=== PATIENT | female | born 1945 | race Caucasian/White ===

== ENCOUNTER 2019-02-18 21:22 | Emergency (ER) | payer BC, MEDICARE, OTHER ==
[~2019-02-18] VITALS: Ht 170.2 cm; Wt 64.9 kg
--- OUTSIDE RECORDS SUMMARY | 2019-02-18 21:26 | XMS REPORT | Summary of Care ---
Author Author [facility] Organization [facility] Address Unknown Phone Unavailable Encounter MYNOR Barrow(GINO) [id number] Date(s): 07/20/17 - 07/21/17 [facility] [address] [place] [address]- [phone] Discharge Disposition: LBTC Left B4 Treatment Cmplt-MSE Cmplt Attending Physician: Richie Keys MD Vital Signs Most recent to 1 oldest [Reference Range]: Height 170.18 cm (07/20/17 9:12 PM) Temperature Oral 97.9 DegF [96.4-99.1 DegF] (07/20/17 9:12 PM) Blood Pressure 160/85 mmHg [90-140/60-90 mmHg] *HI* (07/20/17 9:12 PM) Respiratory Rate 24 BRMIN [14-20 BRMIN] *HI* (07/20/17 9:12 PM) Peripheral Pulse 100 bpm Rate [60-100 bpm] (07/20/17 9:12 PM) Weight 68.182 kg (07/20/17 9:12 PM) Body Mass Index 23.54 m2 (07/20/17 9:12 PM) Problem List Condition Effective Dates Status Health Status Informant Abdominal aortic Active aneurysm(Confirmed) Anxious Active depression(Confirmed ) Hyperlipidemia(Confi 02/22/14 Active rmed)1, 2 Impaired fasting 02/22/14 Active glycaemia3, 4 Insomnia(Confirmed)5 02/22/14 Active , 6 Colon Resolved cancer(Confirmed) Malignant tumor of 02/22/14 Active colon(Confirmed)7, 8 Smoker(Confirmed) Active 1Data migrated from [employer] on 12/20/14. 2Data migrated from [employer] on 12/20/14. 3Data migrated from [employer] on 12/20/14. 4Data migrated from [employer] on 12/20/14. 5Data migrated from [employer] on 12/20/14. 6Data migrated from [employer] on 12/20/14. 7Data migrated from [employer] on 12/20/14. 8Data migrated from [employer] on 12/20/14. Allergies, Adverse Reactions, Alerts Substance Reaction Severity Status NKDA Active Medications Saline Flush 0.9% 10 mL, Route: IVP, Drug Form: INJ, Dosing Weight 68.182, kg, PRN, PRN Line Flush , Start date: 07/20/17 21:18:00 CHEMICAL PROCESS ENGINEER, Duration: 30 day, Stop date: 08/19/17 21:17 :00 CHEMICAL PROCESS ENGINEER Notes: (Same as: BD Posiflush) Start Date: 07/20/17 Stop Date: 07/21/17 Status: Discontinued Results No data available for this section Immunizations Given and Recorded Vaccine Date Status Refusal Reason pneumococcal 13-valent vaccine 05/24/15 Given Procedures Procedure Date Related Diagnosis Body Site Biopsy of the temporal artery 06/20/17 Colon operation1 07/22/08 Bladder operation Colonoscopy Hysterectomy Oophorectomy ORIF - Open reduction and internal fixation of fracture Wrist repair 1colon resection Social History Social History Type Response Substance Abuse Use: None. Employment/School Status: Retired. Alcohol Past Smoking Status Current every day smoker; Type: Cigarettes; Exposure to Tobacco Smoke self; Cigarette Smoking Last 365 Days Yes; Reg Smoking Cessation Counseling Yes; Tobacco use per day: 10; Assessment and Plan No data available for this section
--- OUTSIDE RECORDS SUMMARY | 2019-02-18 21:26 | XMS REPORT | Summary of Care ---
Author Author [facility] Organization [facility] Address Unknown Phone Unavailable Care Team Providers Care Instrument Checker Name Role Phone Higinio Vela PCP Encounter [facility] Danial(FIN) [id number] Date(s): 12/24/18 - 12/24/18 [facility] [address] [place] [address]- [phone] Discharge Disposition: Home or Self Care Attending Physician: Higinio Vela MD Referring Physician: Higinio Vela MD Vital Signs Most recent to 1 oldest [Reference Range]: Height 170.18 cm (12/24/18 2:43 PM) Blood Pressure 126/83 mmHg [90-140/60-90 mmHg] (12/24/18 2:43 PM) Peripheral Pulse 73 bpm Rate [60-100 bpm] (12/24/18 2:43 PM) Weight 66.932 kg (12/24/18 2:43 PM) Body Mass Index 23.11 m2 (12/24/18 2:43 PM) Problem List Condition Effective Dates Status [...] [employer] on 12/20/14. Allergies, Adverse Reactions, Alerts No Known Medication Allergies Medications Paxil 30 mg oral tablet 30 mg=1 tab, PO, Daily, # 30 tab, 0 Refill(s), Pharmacy: [id number] Start Date: 12/24/18 Status: Ordered Results No data available for this section Immunizations Given and Recorded Vaccine Date Status Refusal Reason pneumococcal 13-valent vaccine 05/24/15 Given Procedures Procedure Date Related Diagnosis Body Site Status Biopsy of the temporal artery 06/20/17 Completed Colon operation1 07/22/08 Completed Bladder operation Completed Colonoscopy Completed Hysterectomy Completed Oophorectomy Completed ORIF - Open reduction and internal fixation Completed of fracture Wrist repair Completed 1colon resection Social History Social History Type Response Substance Abuse Use: None. Employment/School Status: Retired. Alcohol Past Smoking Status Current every day smoker; Type: Cigarettes; Exposure to Tobacco Smoke self; Cigarette Smoking Last 365 Days Yes; Reg Smoking Cessation Counseling Yes; Tobacco use per day: 10; entered on: 12/24/18 Assessment and Plan No data available for this section
--- OUTSIDE RECORDS SUMMARY | 2019-02-18 21:26 | XMS REPORT | Summary of Care ---
Author Author [facility] Organization [facility] Address Unknown Phone Unavailable Care Team Providers Care Keying Machine Operator Name Role Phone JoseHiginio melendez Carmelita PCP Encounter [facility] Niesha_xavier(FIN) [id number] Date(s): 06/29/18 - 06/30/18 [facility] [address] [place] [address]- [phone] Vital Signs No data available for this section Problem List Condition Effective Dates Status Health [...] Reactions, Alerts No Known Medication Allergies Medications loratadine 10 mg oral tablet 10 mg=1 tab, PO, Daily, # 90 tab, 3 Refill(s), Pharmacy: [id number] Start Date: 07/01/18 Stop Date: 11/25/18 Status: Discontinued Results No data available for [...]
--- OUTSIDE RECORDS SUMMARY | 2019-02-18 21:26 | XMS REPORT | Continuity of Care Document ---
Author Author [employer] Organization [employer] Address Unknown Phone Unavailable Care Team Providers Care Stull Installer Name Role Phone [employer] Unavailable Unavailable Problems Problem Status Onset Date Classification Date Reported Comments Source SOB Active 07/20/2017 [facility] UNK Active 06/18/2017 [facility] Z00.00 - ENCNTR FOR GENERAL ADULT MEDIC Active 06/26/2015 [facility] [place] ADJUSTMENT DISORDER WITH DEPRESSED MOOD Active 03/25/2014 Condition 11/23/2014 [facility] 786.2 - COUGH 305.1 - TOBACCO USE DIS Active 02/22/2014 [facility] [place] Hyperlipidemia1, 2 Active 02/22/2014 Problem 02/17/2019 Data migrated from [employer] on 12/20/14. Data migrated from [employer] on 12/20/14. [facility], [facility] [place],[facility] Impaired fasting glycaemia3, 4 Active 02/22/2014 Problem 02/17/2019 Data migrated from [employer] on 12/20/14. Data migrated from [employer] on 12/20/14. [facility] Insomnia5, 6 Active 02/22/2014 Problem 02/17/2019 Data migrated from [employer] on 12/20/14. Data migrated from [employer] on 12/20/14. [facility], [facility] [place],[facility] Malignant tumor of colon7, 8 Active 02/22/2014 Problem 02/17/2019 Data migrated from [employer] on 12/20/14. Data migrated from [employer] on 12/20/14. [facility], [facility] [place],[facility] ABDOMINAL AORTIC ANEURYSM Active 02/22/2014 Condition 11/23/2014 [facility] COLON CANCER Active 02/22/2014 Condition 11/23/2014 [facility] INSOMNIA, CHRONIC Active 02/22/2014 Condition 11/23/2014 [facility] HYPERLIPIDEMIA Active 02/22/2014 Condition 11/23/2014 [facility] IMPAIRED FASTING GLUCOSE Active 02/22/2014 Condition 11/23/2014 [facility] ELEVATED BLOOD PRESSURE WITHOUT DIAGNOSIS OF HYPERTENSION Inactive 02/22/2014 Condition 11/23/2014 [facility] B12 DEFICIENCY Active 02/22/2014 Condition 11/23/2014 [facility] COUGH Inactive 02/22/2014 Condition 11/23/2014 [facility] SMOKER Inactive 02/22/2014 Condition 11/23/2014 [facility] FATIGUE Inactive 02/22/2014 Condition 11/23/2014 [facility] Abdominal aortic aneurysm Active Problem 02/17/2019 [facility] 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 [facility], [facility] [place],[facility] Colon cancer Resolved Problem 02/17/2019 [facility] Smoker Active Problem 02/17/2019 [facility] Medications Medication Details Route Status Patient Instructions Ordering Provider Order Date Source Paroxetine 40 MG Oral Tablet [Paxil] 40 mg=1 tab, PO, Daily, # 30 tab, 0 Refill(s), Pharmacy: [facility] [id number] Active 01/19/2019 [facility] Paroxetine 30 MG Oral Tablet [Paxil] 30 mg=1 tab, PO, Daily, # 30 tab, 0 Refill(s), Pharmacy: [facility] [id number] Active 12/24/2018 [facility] lisinopril 20 mg oral tablet See Instructions, TAKE 1 TABLET BY MOUTH DAILY, # 90 tab, 1 Refill(s), Pharmacy: [facility] [id number] Active 11/25/2018 [facility] atorvastatin 20 mg oral tablet =1 tab, PO, Bedtime, # 90 tab, 1 Refill(s), [id number] Active 11/25/2018 [facility] Paroxetine 20 MG Oral Tablet [Paxil] 20 mg=1 tab, PO, Daily, # 30 tab, 0 Refill(s), Pharmacy: [facility] [id number] Active 11/25/2018 [facility] Vitamin D3 50,000 intl units oral capsule 50,000 IntlUnit=1 cap, PO, qWeek, # 12 cap, 0 Refill(s) Active 11/25/2018 [facility] Actemra 20 mg/mL intravenous solution IV, q4wk, 0 Refill(s) Active 11/25/2018 [facility] Loratadine 10 MG Oral Tablet 10 mg=1 tab, PO, Daily, # 90 tab, 3 Refill(s), [facility] [place] [id number] No Longer Active 07/01/2018 [facility] lisinopril 20 mg oral tablet See Instructions, # 90 tab, Refill(s) 1, TAKE 1 TABLET BY MOUTH DAILY, Pharmacy: [facility] [id number] Active 06/01/2018 [facility] Zolpidem tartrate 5 MG Oral Tablet [Ambien] 5 mg=1 tab, PO, Bedtime, PRN for sleep, # 30 tab, 1 Refill(s) No Longer Active 05/07/2018 [facility] lisinopril 20 mg oral tablet 20 mg=1 tab, PO, Daily, # 90 tab, 0 Refill(s), [email or web address] [id number] No Longer Active 02/23/2018 [facility] Zolpidem tartrate 5 MG Oral Tablet [Ambien] 5 mg=1 tab, PO, Bedtime, PRN for sleep, # 30 tab, 2 Refill(s) No Longer Active 02/05/2018 [facility] predniSONE 5 mg oral tablet 5 mg=1 tab, PO, Daily, Give with food., # 14 tab, 0 Refill(s) Active 02/05/2018 [facility] gabapentin 600 MG Oral Tablet 600 mg=1 tab, PO, BID, 0 Refill(s) Active 02/05/2018 [facility] lisinopril 20 mg oral tablet 20 mg=1 tab, PO, Daily, # 30 tab, 0 Refill(s), [email or web address] [id number] No Longer Active 12/17/2017 [facility] lisinopril 10 mg oral tablet 10 mg=1 tab, PO, Daily, # 90 tab, 1 Refill(s), Pharmacy: [facility] [id number] Active 11/25/2017 [facility] Zolpidem tartrate 5 MG Oral Tablet [Ambien] 5 mg=1 tab, PO, Bedtime, PRN for sleep, # 30 tab, 2 Refill(s) Active 11/06/2017 [facility] lisinopril 5 mg oral tablet 5 mg=1 tab, PO, Daily, # 30 tab, 0 Refill(s), other Active 11/06/2017 [facility] predniSONE 1 mg oral delayed release tablet 8 mg=8 tab, PO, Daily, 0 Refill(s) Active 11/06/2017 [facility] gabapentin 100 MG Oral Capsule 500 mg=5 cap, PO, TID, 0 Refill(s) Active 11/06/2017 [facility] Zolpidem tartrate 5 MG Oral Tablet [Ambien] 5 mg=1 tab, PO, Bedtime, PRN for sleep, # 30 tab, 2 Refill(s) No Longer Active 08/08/2017 [facility] atorvastatin 20 mg oral tablet 20 mg=1 tab, PO, Bedtime, # 90 tab, 1 Refill(s), Pharmacy: [facility] [id number] Active 07/25/2017 [facility] Saline Flush 0.9% 10 mL, Route: IVP, Drug Form: INJ, Dosing Weight 68.182, kg, PRN, PRN Line Flush, Start date: 07/20/17 21:18:00 LIGHTHOUSE KEEPER, Duration: 30 day, Stop date: 08/19/17 21:17:00 CSTNotes: (Same as: BD Posiflush) No Longer Active 07/21/2017 [facility] lisinopril 10 mg oral tablet 10 mg=1 tab, PO, Daily, # 30 tab, 0 Refill(s), Pharmacy: [facility] [id number] Active 07/10/2017 [facility] Zolpidem tartrate 5 MG Oral Tablet [Ambien] 5 mg=1 tab, PO, Bedtime, PRN for sleep, # 30 tab, 0 Refill(s) Active 07/10/2017 [facility] Oxycodone Hydrochloride 5 MG Oral Tablet 10 mg, Route: PO, Drug form: TAB, ONCE, Dosing Weight 68.722, kg, PRN Pain Score 7-10, Start date: 06/20/17 11:33:00 LIGHTHOUSE KEEPER Inactive 06/20/2017 [facility] Fentanyl 25 microgram, Route: IVP, Q5Min, Dosing Weight 68.722, kg, PRN Pain Score 4-6, Priority: Routine, Start date: 06/20/17 11:01:00 LIGHTHOUSE KEEPER, Duration: 4 doses or times, Stop date: Limited # of times Inactive 06/20/2017 [facility] Albuterol 0.83 MG/ML Inhalant Solution 2.49 mg, Route: NEB, Q20Min, Dosing Weight 68.722, kg, PRN Wheezing, Priority: STAT, Start date: 06/20/17 11:01:00 LIGHTHOUSE KEEPER, Duration: 30 day, Stop date: 07/20/17 11:00:00 LIGHTHOUSE KEEPER Inactive 06/20/2017 [facility] Flumazenil 0.2 mg, Route: IVP, PRN, Dosing Weight 68.722, kg, PRN Benzodiazepine Reversal, Initial dose, Start date: 06/20/17 11:01:00 LIGHTHOUSE KEEPER, Duration: 30 day, Stop date: 07/20/17 11:00:00 LIGHTHOUSE KEEPER Inactive 06/20/2017 [facility] Diphenhydramine 12.5 mg, Route: IVP, Drug form: INJ, Q6H, Dosing Weight 68.722, kg, PRN Itching, Start date: 06/20/17 11:01:00 LIGHTHOUSE KEEPER, Duration: 30 day, Stop date: 07/20/17 11:00:00 LIGHTHOUSE KEEPER Inactive 06/20/2017 [facility] Naloxone 0.4 mg, Route: IVP, Q2MIN, Dosing Weight 68.722, kg, PRN Narcotic Reversal, Start date: 06/20/17 11:01:00 LIGHTHOUSE KEEPER, Duration: 8 doses or times, Stop date: Limited # of times Inactive 06/20/2017 [facility] Hydromorphone 0.5 mg, Route: IVP, Q5Min, Dosing Weight 68.722, kg, PRN Pain Score 7-10, Start date: 06/20/17 11:01:00 LIGHTHOUSE KEEPER, Duration: 4 doses or times, Stop date: Limited # of times Inactive 06/20/2017 [facility] Ondansetron 4 mg, Route: IVP, ONCE, Dosing Weight 68.722, kg, PRN Nausea & Vomiting, Start date: 06/20/17 11:01:00 LIGHTHOUSE KEEPER Inactive 06/20/2017 [facility] Hydralazine 10 mg, Route: IVP, Q20Min, Dosing Weight 68.722, kg, PRN Elevated BP, Start date: 06/20/17 11:01:00 LIGHTHOUSE KEEPER, Duration: 2 doses or times, Stop date: Limited # of times Inactive 06/20/2017 [facility] Labetalol 10 mg, Route: IVP, Q5Min, Dosing Weight 68.722, kg, PRN Elevated BP, Start date: 06/20/17 11:01:00 LIGHTHOUSE KEEPER, Duration: 5 doses or times, Stop date: Limited # of times Inactive 06/20/2017 [facility] Acetaminophen 1,000 mg, Route: PO, Drug form: TAB, ONCE, Dosing Weight 68.722, kg, PRN Pain Score 1-3, Start date: 06/20/17 11:01:00 LIGHTHOUSE KEEPER Inactive 06/20/2017 [facility] Oxycodone 5 mg, Route: PO, Drug form: TAB, Q4H, Dosing Weight 68.722, kg, PRN Pain Score 4-6, Start date: 06/20/17 11:01:00 LIGHTHOUSE KEEPER, Duration: 30 day, Stop date: 07/20/17 11:00:00 LIGHTHOUSE KEEPER Inactive 06/20/2017 [facility] Ketorolac 30 mg, 1 mL, Route: IVP, Drug form: INJ, ONCE, Dosing Weight 68.722, kg, Start date: 06/20/17 11:01:00 LIGHTHOUSE KEEPER, Stop date: 06/20/17 11:01:00 CSTNotes: (Same as:Toradol) IV bolus must be given >15 seconds. Give IM administration slowly and deeply into the muscle. Not for use > 4 days MEDICATION WASTE Product Size: 30 mg Product Wasted: ___ mg Inactive 06/20/2017 [facility] ondansetron (ANES) Route: IV, Drug form: INJ, ONCE, Stop date: 06/20/17 10:03:00 LIGHTHOUSE KEEPER Inactive 06/20/2017 [facility] dexamethasone (ANES) Route: IV, Drug form: INJ, ONCE, Stop date: 06/20/17 10:03:00 LIGHTHOUSE KEEPER Inactive 06/20/2017 [facility] Acetaminophen 300 MG / Codeine Phosphate 30 MG Oral Tablet [Tylenol with Codeine #3] 1 tab, PO, Q4H, PRN for pain, # 20 tab, 0 Refill(s) Active 06/20/2017 [facility] propofol (ANES) Route: IV, Drug form: INJ, ONCE, Stop date: 06/20/17 9:58:00 LIGHTHOUSE KEEPER Inactive 06/20/2017 [facility] ceFAZolin (ANES) Route: IV, Drug form: INJ, ONCE, Stop date: 06/20/17 9:58:00 LIGHTHOUSE KEEPER Inactive 06/20/2017 [facility] lidocaine (ANES) Route: IV, Drug form: INJ, ONCE, Stop date: 06/20/17 9:58:00 LIGHTHOUSE KEEPER Inactive 06/20/2017 [facility] fentaNYL (ANES) Route: IV, Drug form: INJ, ONCE, Stop date: 06/20/17 9:53:00 LIGHTHOUSE KEEPER Inactive 06/20/2017 [facility] midazolam (ANES) Route: IV, Drug form: SOLN, ONCE, Stop date: 06/20/17 9:53:00 LIGHTHOUSE KEEPER Inactive 06/20/2017 [facility] Lactated Ringers Injection IV (ANES) 1000 mL Route: IV, Total Volume: 1,000, Start date: 06/20/17 9:08:00 LIGHTHOUSE KEEPER, Stop date: 06/20/17 10:08:00 LIGHTHOUSE KEEPER Inactive 06/20/2017 [facility] Calcium Chloride 0.0014 MEQ/ML / Potassium Chloride 0.004 MEQ/ML / Sodium Chloride 0.103 MEQ/ML / Sodium Lactate 0.028 MEQ/ML Injectable Solution 1,000 mL, Rate: 25 ml/hr, Infuse over: 40 hr, Route: IV, Dosing Weight 68.722 kg, Total Volume: 1,000, Start date: 06/20/17 9:03:00 LIGHTHOUSE KEEPER, Duration: 30 day, Stop date: 07/20/17 9:02:00 LIGHTHOUSE KEEPER, 1.81, m2 Inactive 06/20/2017 [facility] Cefazolin 2 gm, Route: IVPB, ONCE, Dosing Weight 68.722, kg, Start date: 06/20/17 7:26:00 LIGHTHOUSE KEEPER, Stop date: 06/20/17 7:26:00 LIGHTHOUSE KEEPER, Surgical Prophylaxis Only; For patients Inactive 06/20/2017 [facility] Tylenol 500 mg, PO, TID, as needed for headache Active 06/20/2017 [facility] predniSONE 20 mg oral tablet 60 mg=3 tab, PO, Daily, X 30 day, # 90 tab, 0 Refill(s), Pharmacy: [facility] [id number] Active 06/18/2017 [facility] naproxen 500 mg oral tablet 500 mg=1 tab, PO, BID, PRN Pain, # 30 tab, 0 Refill(s), Pharmacy: [facility] [id number] Active 06/17/2017 [facility] TRAZODONE HCL 50 MG TABS 1 tablet at bedtime Active 05/31/2014 [facility] TRAZODONE HCL 50 MG TABS 1 tablet at bedtime Active 05/31/2014 [facility] LEXAPRO 20 MG TABS 1 tablet daily No Longer Active 04/25/2014 [facility] LEXAPRO 10 MG TABS 1 tablet daily Active 04/25/2014 [facility] MIRTAZAPINE 30 MG TBDP one po q hs No Longer Active 03/25/2014 [facility] FISH OIL BURP-LESS 1200 MG CAPS 1 tab by mouth twice a day Active 02/22/2014 [facility] CALCIUM CARBONATE 600 MG TABS 2 tabs twice a day Active 02/22/2014 [facility] VITAMIN D3 1000 UNIT CAPS 2 tabs twice a day Active 02/22/2014 [facility] CENTRUM SILVER ULTRA WOMENS TABS 1 tab by mouth once a day Active 02/22/2014 [facility] MAGNESIUM GLUCONATE 500 MG TABS 1 tab by mouth once a day No Longer Active 02/22/2014 [facility] ATORVASTATIN CALCIUM 20 MG TABS 1 tablet daily Active 02/22/2014 [facility] TRAZODONE HCL 50 MG TABS 1 tablet at bedtime Active 02/22/2014 [facility] VITAMIN D3 1000 UNIT CAPS 2 tabs twice a day Active 02/22/2014 [facility] TRAZODONE HCL 50 MG TABS 2 at bed time No Longer Active 02/22/2014 [facility] TRAZODONE HCL 50 MG TABS 2 at bed time No Longer Active 02/22/2014 [facility] ATORVASTATIN CALCIUM 20 MG TABS 1 tablet daily Active 02/22/2014 [facility] TRAZODONE HCL 50 MG TABS 2 at bed time No Longer Active 02/22/2014 [facility] Allergies, Adverse Reactions, Alerts Substance Category Reaction Severity Reaction type Status Date Reported Comments Source No Known Medication Allergies Assertion Drug allergy [facility] Immunizations Immunization Date Given Site Status Last Updated Comments Source pneumococcal 13-valent vaccine 05/24/2015 Left Deltoid completed [facility] Results Order Name Results Value Reference Range Date Interpretation Comments Source Chemistry HGBA1C 6.1 - 5.6 11/23/2014 [facility] Chemistry CHOLESTEROL 152 - 199 11/23/2014 [facility] Chemistry TRIGLYCERIDE 88 - 149 11/23/2014 [facility] Chemistry HDL 60 >=61 11/23/2014 [facility] Chemistry LDL 74 - 99 11/23/2014 [facility] Chemistry SODIUM 138 MEQ/L 135 - 145 11/23/2014 [facility] Chemistry POTASSIUM 3.9 MEQ/L 3.5 - 5.1 11/23/2014 [facility] Chemistry CREATININE 0.7 0.5 - 1.4 11/23/2014 [facility] Chemistry BUN 8 7 - 22 11/23/2014 [facility] Chemistry BUN/CREAT 11 6 - 25 11/23/2014 [facility] Chemistry ALBUMIN 4.1 3.5 - 5.0 11/23/2014 [facility] Chemistry CALCIUM 9.2 8.5 - 10.5 11/23/2014 [facility] Chemistry SGPT (ALT) 25 0 - 65 11/23/2014 [facility] Chemistry SGOT (AST) 16 0 - 37 11/23/2014 [facility] Chemistry ALK PHOS 56 39 - 136 11/23/2014 [facility] Chemistry HGBA1C 6.1 - 5.6 02/22/2014 [facility] Chemistry CHOLESTEROL 128 - 199 02/22/2014 [facility] Chemistry TRIGLYCERIDE 70 - 149 02/22/2014 [facility] Chemistry HDL 57 >=61 02/22/2014 [facility] Chemistry LDL 57 - 99 02/22/2014 [facility] Chemistry SODIUM 140 MEQ/L 135 - 145 02/22/2014 [facility] Chemistry POTASSIUM 4.2 MEQ/L 3.5 - 5.1 02/22/2014 [facility] Chemistry CREATININE 0.9 0.5 - 1.4 02/22/2014 [facility] Chemistry BUN 7 7 - 22 02/22/2014 [facility] Chemistry BUN/CREAT 8 6 - 25 02/22/2014 [facility] Chemistry ALBUMIN 4.1 3.5 - 5.0 02/22/2014 [facility] Chemistry CALCIUM 9.7 8.5 - 10.5 02/22/2014 [facility] Chemistry SGPT (ALT) 24 0 - 65 02/22/2014 [facility] Chemistry SGOT (AST) 15 0 - 37 02/22/2014 [facility] Chemistry ALK PHOS 64 39 - 136 02/22/2014 [facility] Chemistry TSH 2.880 0.360 - 3.740 02/22/2014 [facility] Hematology HGB 13.7 12.0 - 16.0 02/22/2014 [facility] Hematology HCT 40.6 36.0 - 48.0 02/22/2014 [facility] Hematology PLATELETS 230 K/CMM 133 - 450 02/22/2014 [facility] Case Managers PAP SMEAR completed 12/04/2007 [facility] Case Managers PAP SMEAR completed 12/04/2007 [facility] Pathology Reports No Data Provided for This Section Diagnostic Reports Report Value Date Source Chest 1view DX Patient Name: GERARDO MELENDREZ : 1945; Age: 72 years y/o Female MR: [id number] Study: CHEST 1VIEW DX 07/20/2017 9:18 PM LIGHTHOUSE KEEPER Ordering Physician: Corin Camarena MD Clinical Indication: - shortness of breath; dyspnea for one week Comparison: 02/22/2014 FINDINGS: The single frontal view of the chest radiograph demonstrates the lungs to be clear and normal. The lung volumes without interstitial or airspace opacities, pleural effusions or pneumothorax. The heart size and pulmonary vasculature are normal. Atherosclerotic aorta. The trachea is midline. Unremarkable normal mediastinum. There are no clinically significant osseous abnormalities noted. IMPRESSION: No chest radiographic evidence of acute cardiopulmonary disease. SL: [id number] 07/20/2017 [facility] Abdomen Aortic Aneurysm (AAA) US EXAM: Aorta ultrasound. CLINICAL HX: Z87.891 Personal history of nicotine dependence. Abdominal aortic aneurysm. . TECHNIQUE: Grayscale and Doppler sonogram of the abdominal aorta. COMPARISON: Aorta ultrasound: 07/18/2015. FINDINGS: Aortoiliac atherosclerosis: Marked. Aortoiliac measurements: -- Proximal aorta: 2.8 cm. -- Mid aorta: 2.5 cm. At the level of the mid/distal abdominal aorta, there is calcified aneurysmal dilatation measuring 3.2 x 3.2 cm axially and 4.1 cm craniocaudally (previously 3 x 3 x 4.1 cm). -- Distal aorta: 2.7 cm. Abdominal aortic aneurysm, as above. -- Right common iliac artery: 0.7 cm. -- Left common iliac artery: 0.7 cm. Other: None. IMPRESSION: 1. Mid/distal abdominal aortic aneurysm measuring 3.2 x 3.2 cm axially. This is slightly larger than on the prior exam but could represent difference in measurement technique. Recommend follow-up ultrasound in 3 years (as below). AAA (abdominal aortic aneurysm) management based on max aortic diameter (per Society of Vascular Surgeons, 2009): a. 2.6-2.9 cm: Follow up every 5 years. b. 3-3.4 cm: Follow up every 3 years. c. 3.5-3.9 cm: Follow up every 1 year. d. 4-4.4 cm: Follow up every 1 year and vascular consultation. e. 4.5-5.4 cm: Follow up every 6 months and vascular consultation. f. >/=5.5 cm: Vascular surgery consultation. 09/23/2016 [facility] - DIGITAL MAMMO SCREENING [place] MA BILATERAL DIGITAL SCREENING MAMMOGRAM WITH CAD: 09/23/2016 CLINICAL: Routine. Current study was evaluated with a Computer Aided Detection (CAD) system. Comparison is made to exams dated: 07/18/2015 mammogram - [facility], 09/23/2013 mammogram and 08/05/2011 mammogram - [facility]. The tissue of both breasts is almost entirely fat. There are benign calcifications in both breasts. There are mole markers on both breasts. No significant masses, calcifications, or other findings are seen in either breast. There has been no significant interval change. IMPRESSION: BENIGN There is no mammographic evidence of malignancy. A 1 year screening mammogram is recommended. Professional services are provided by the [facility]. Kiko Krishnamurthy M.D., cm/penbryn:09/23/2016 11:53:52 Earth Moving Technician: Nadia GARCIA(R)(Mo), [facility] This exam was dictated and interpreted by [id number] for HERMES Xie 15. letter sent: Normal exam Mammogram BI-RADS: 2 Benign 09/23/2016 JANETT Lovett Ext Lower Arterial bilat w pressure US EXAM: BILATERAL LOWER EXTREMITY ARTERIAL DOPPLER DATE: 06/05/2016 2:53 PM LIGHTHOUSE KEEPER . COMPARISON: None TECHNIQUE: Color and spectral Doppler examination of the lower extremity arteries was performed. Segmental pressures were obtained and ankle/brachial indices were calculated, bilaterally. FINDINGS: There is scattered calcified disease and intimal thickening in the lower extremities bilaterally. Right Extremity Waveforms: Common Femoral Artery: Triphasic, 119cm/sec Superficial Femoral Artery: Triphasic, 82-103cm/sec Popliteal Artery: Triphasic, 42cm/sec Anterior tibial artery: Biphasic, 63cm/sec Posterior Tibialis Artery: Biphasic, 52cm/sec Dorsalis Pedis Artery: Biphasic, 41cm/sec Left Extremity Waveforms: Common Femoral Artery: Triphasic, 93cm/sec Superficial Femoral Artery: Triphasic, 73-88cm/sec Popliteal Artery: Triphasic, 73cm/sec Anterior tibial artery: Biphasic, 41cm/sec Posterior Tibialis Artery: Biphasic, 46cm/sec Dorsalis Pedis Artery: Biphasic, 13cm/sec Ankle Brachial Indices: Right SHUKRI: Upper thigh-1.05 Lower thigh-0.97 Calf-0.99 PT-0.96 DP-0.56 Left SHUKRI: Upper thigh-1.06 Lower thigh-0.96 Calf- 1.06 PT-0.96 DP-0.90 IMPRESSION: 1. Mild disease bilaterally beneath the trifurcation without vascular occlusion or substantial velocity gradient 2. Ankle/brachial indices of abnormal, low right dorsalis pedis SHUKRI 06/05/2016 JANETT [facility] - DIGITAL MAMMO SCREENING [facility] MA BILATERAL DIGITAL SCREENING MAMMOGRAM WITH CAD: 07/18/2015 CLINICAL: Routine. Current study was evaluated with a Computer Aided Detection (CAD) system. No prior exams were available for comparison. The tissue of both breasts is almost entirely fat. There are benign calcifications in both breasts. There are mole markers on both breasts. No significant masses, calcifications, or other findings are seen in either breast. IMPRESSION: BENIGN There is no mammographic evidence of malignancy. A 1 year screening mammogram is recommended. Kiko Krishnamurthy M.D., cm/penrad:07/31/2015 12:32:10 Earth Moving Technician: Yazmin Mcgill [facility] This exam was dictated and interpreted by [id number] for JANETT Lovett. letter sent: Normal exam Mammogram BI-RADS: 2 Benign 07/18/2015 JANETT Lovett Aorta US ULTRASOUND OF THE ABDOMINAL AORTA History: 70 year female with a smoking history and an aneurysm per patient Technique: Real-time pastor-scale imaging supplemented with color Doppler of the retroperitoneal space was performed. Comparison: None. Findings: The abdominal aorta has scattered plaque. Proximal aorta transverse diameter is 2.3 cm. Mid aorta diameter is 2.3 cm. Infrarenal fusiform dilation of the abdominal aorta in a segment 4.1 cm long with AP dimension of 3.0 and transverse 3.0 cm noted. Distal aorta above bifurcation diameter is 1.8 cm. Right common iliac diameter is 0.8 cm. Left common iliac diameter is 0.8 cm. IMPRESSION: Infrarenal fusiform dilation of the abdominal aorta with transverse diameter of 3.0 cm. 07/18/2015 CHARLEEN Lovett Consultation Notes No Data Provided for This Section Discharge Summaries No Data Provided for This Section History and Physicals No Data Provided for This Section Vital Signs Vital Sign Value Date Comments Source Weight 66.08 01/19/2019 [facility] BMI Calculated 22.82 01/19/2019 [facility] Height 170.18 cm 01/19/2019 [facility] Systolic (mm Hg) 130 01/19/2019 [facility] Diastolic (mm Hg) 85 01/19/2019 [facility] Temperature Oral (F) 98.6 F 01/19/2019 [facility] Heart Rate 87 01/19/2019 [facility] Height 170.18 cm 12/24/2018 [facility] Weight 66.932 12/24/2018 [facility] BMI Calculated 23.11 12/24/2018 [facility] Systolic (mm Hg) 126 12/24/2018 [facility] Diastolic (mm Hg) 83 12/24/2018 [facility] Heart Rate 73 12/24/2018 Medical Group Weight 66.818 11/25/2018 [facility] BMI Calculated 23.07 11/25/2018 [facility] Height 170.18 cm 11/25/2018 [facility] Heart Rate 85 11/25/2018 [facility] Temperature Oral (F) 98.5 F 11/25/2018 [facility] Systolic (mm Hg) 125 11/25/2018 [facility] Diastolic (mm Hg) 85 11/25/2018 [facility] BMI Calculated 22.97 05/07/2018 [facility] Weight 66.534 05/07/2018 [facility] Temperature Oral (F) 98.4 F 05/07/2018 [facility] Heart Rate 84 05/07/2018 [facility] Systolic (mm Hg) 134 05/07/2018 [facility] Diastolic (mm Hg) 88 05/07/2018 [facility] Height 170.18 cm 05/07/2018 [facility] BMI Calculated 23.54 02/05/2018 [facility] Weight 68.182 02/05/2018 [facility] Temperature Oral (F) 98.4 F 02/05/2018 [facility] Height 170.18 cm 02/05/2018 [facility] Systolic (mm Hg) 129 02/05/2018 [facility] Diastolic (mm Hg) 77 02/05/2018 [facility] Heart Rate 86 02/05/2018 [facility] Weight 71.364 11/06/2017 [facility] Heart Rate 80 11/06/2017 [facility] Temperature Oral (F) 98.1 F 11/06/2017 [facility] Systolic (mm Hg) 140 11/06/2017 [facility] Diastolic (mm Hg) 103 11/06/2017 [facility] Weight 69.205 08/08/2017 [facility] BMI Calculated 23.9 08/08/2017 [facility] Height 170.18 cm 08/08/2017 [facility] Temperature Oral (F) 98.3 F 08/08/2017 [facility] Heart Rate 93 08/08/2017 [facility] Systolic (mm Hg) 155 08/08/2017 [facility] Diastolic (mm Hg) 86 08/08/2017 [facility] Systolic (mm Hg) 98 07/25/2017 [facility] Diastolic (mm Hg) 62 07/25/2017 [facility] Weight 67.443 07/25/2017 [facility] BMI Calculated 23.29 07/25/2017 [facility] Height 170.18 cm 07/25/2017 [facility] Temperature Oral (F) 98.4 F 07/25/2017 [facility] Heart Rate 90 07/25/2017 [facility] Respitory Rate 17 07/25/2017 [facility] Systolic (mm Hg) 89 07/25/2017 [facility] Diastolic (mm Hg) 60 07/25/2017 [facility] Heart Rate 100 07/21/2017 [facility] Respitory Rate 24 07/21/2017 [facility] Systolic (mm Hg) 160 07/21/2017 [facility] Diastolic (mm Hg) 85 07/21/2017 [facility] Height 170.18 cm 07/21/2017 [facility] Weight 68.182 07/21/2017 [facility] BMI Calculated 23.54 07/21/2017 [facility] Temperature Oral (F) 97.9 F 07/21/2017 [facility] Height 170.18 cm 07/10/2017 [facility] Weight 69.659 07/10/2017 [facility] BMI Calculated 24.05 07/10/2017 [facility] Temperature Oral (F) 97.9 F 07/10/2017 [facility] Heart Rate 80 07/10/2017 [facility] Systolic (mm Hg) 160 07/10/2017 [facility] Diastolic (mm Hg) 89 07/10/2017 [facility] BMI Calculated 24.05 07/07/2017 [facility] Weight 69.659 07/07/2017 [facility] Height 170.18 cm 07/07/2017 [facility] Systolic (mm Hg) 137 07/07/2017 [facility] Diastolic (mm Hg) 80 07/07/2017 [facility] Temperature Oral (F) 98.3 F 07/07/2017 [facility] Heart Rate 87 07/07/2017 [facility] Systolic (mm Hg) 122 06/20/2017 [facility] Diastolic (mm Hg) 156 06/20/2017 [facility] Systolic (mm Hg) 118 06/20/2017 [facility] Diastolic (mm Hg) 81 06/20/2017 [facility] Respitory Rate 18 06/20/2017 [facility] Respitory Rate 18 06/20/2017 [facility] Systolic (mm Hg) 136 06/20/2017 [facility] Diastolic (mm Hg) 74 06/20/2017 [facility] Respitory Rate 18 06/20/2017 [facility] Temperature Oral (F) 98.2 F 06/20/2017 [facility] Heart Rate 84 06/20/2017 [facility] BMI Calculated 23.73 06/20/2017 [facility] Weight 68.722 06/20/2017 [facility] Height 170.18 cm 06/20/2017 [facility] Temperature Oral (F) 98.6 F 06/19/2017 [facility] Height 170.18 cm 06/19/2017 [facility] BMI Calculated 23.71 06/19/2017 [facility] Weight 68.665 06/19/2017 [facility] Systolic (mm Hg) 150 06/19/2017 [facility] Diastolic (mm Hg) 87 06/19/2017 [facility] Heart Rate 90 06/19/2017 [facility] Height 170.18 cm 06/17/2017 [facility] BMI Calculated 23.86 06/17/2017 [facility] Weight 69.091 06/17/2017 [facility] Heart Rate 88 06/17/2017 [facility] Temperature Oral (F) 97.9 F 06/17/2017 [facility] Systolic (mm Hg) 151 06/17/2017 [facility] Diastolic (mm Hg) 78 06/17/2017 [facility] Height 67 11/23/2014 [facility] Weight 148.25 11/23/2014 [facility] Temperature Oral (F) 98.1 F 11/23/2014 [facility] Heart Rate 80 11/23/2014 [facility] Systolic (mm Hg) 131 11/23/2014 [facility] Diastolic (mm Hg) 84 11/23/2014 [facility] Height 67 05/31/2014 [facility] Weight 144.25 05/31/2014 [facility] Temperature Oral (F) 97.6 F 05/31/2014 [facility] Heart Rate 69 05/31/2014 [facility] Systolic (mm Hg) 140 05/31/2014 [facility] Diastolic (mm Hg) 60 05/31/2014 [facility] Height 67 04/25/2014 [facility] Weight 142.38 04/25/2014 [facility] Temperature Oral (F) 97.2 F 04/25/2014 [facility] Heart Rate 82 04/25/2014 [facility] Systolic (mm Hg) 122 04/25/2014 [facility] Diastolic (mm Hg) 64 04/25/2014 [facility] Height 67 03/25/2014 [facility] Weight 143 03/25/2014 [facility] Temperature Oral (F) 97.3 F 03/25/2014 [facility] Heart Rate 86 03/25/2014 [facility] Systolic (mm Hg) 122 03/25/2014 [facility] Diastolic (mm Hg) 78 03/25/2014 [facility] Height 67 02/22/2014 [facility] Weight 145 02/22/2014 [facility] Temperature Oral (F) 97.7 F 02/22/2014 [facility] Heart Rate 74 02/22/2014 [facility] Systolic (mm Hg) 122 02/22/2014 [facility] Diastolic (mm Hg) 78 02/22/2014 [facility] Encounters Location Location Details Encounter Type Encounter Number Reason For Visit Attending Provider ADM Date DC Date Status Source [facility] Lab Report [id number] Nichole Rossi MD 02/22/2014 02/22/2014 Medical Group [facility] [place] [facility] [id number] Nichole Rossi 02/22/2014 [facility] [id number] Nichole Rossi MD 02/23/2014 02/23/2014 [facility] Office Visit [id number] Nichole Rossi MD 03/25/2014 03/25/2014 [facility] Office Visit [id number] Nichole Rossi MD 04/25/2014 04/25/2014 [facility] Office Visit [id number] Nichole Rsosi MD 05/31/2014 05/31/2014 [facility] Lab Report [id number] Nichole Rossi MD 11/23/2014 11/23/2014 Medical [facility] Outpatient [id number] NICHOLE ROSSI 05/23/2015 Active [facility] [place] [facility] [id number] Nichole Rossi 07/18/2015 07/19/2015 [facility] [place] Outpatient [id number] NICHOLE ROSSI 11/21/2015 Active [facility] Outpatient [id number] NICHOLE ROSSI 05/22/2016 Active [facility] Outpatient [id number] NICHOLE ROSSI 05/23/2016 Active [facility] [place] Out[facility] [id number] Nichole Rossi 06/05/2016 06/06/2016 [facility] [place] [facility] Outpatient Imaging - [place] Out[facility] [id number] Nichole Rossi 09/23/2016 09/24/2016 [facility] [place] Outpatient [id number] NICHOLE ROSSI 11/20/2016 Active [facility] Outpatient [id number] HIGINIO ANAND 06/17/2017 Active [facility] Primary Care [place] Outpatient [id number] Nichole Rossi 06/17/2017 06/18/2017 Medical [facility] Outpatient [id number] MOISES MEJIA 06/19/2017 Active [facility] General Surgery [place] Outpatient [id number] Moises Mejia 06/19/2017 06/20/2017 [facility] Outpatient [id number] MOISES MEJIA 06/20/2017 Active [facility] Outpatient [id number] MEEK ALBARO 06/20/2017 Active [facility] Day Surgery [id number] Moises Mejia 06/20/2017 06/20/2017 [facility] General Surgery [facility] Ambulatory Pre-Reg [id number] Meek Le 06/20/2017 06/20/2017 [facility] Outpatient [id number] MOISES MEJIA 07/07/2017 Active [facility] General Surgery [facility] Outpatient [id number] Moises Mejia 07/07/2017 07/08/2017 [facility] Outpatient [id number] FIRAS QUDDOS 07/10/2017 Active [facility] Primary [facility] [place] Outpatient [id number] Firas Quddos 07/10/2017 07/11/2017 Medical Group [facility] Primary Care [place] Phone Message [id number] 07/17/2017 07/19/2017 Medical Group [facility] Emergency [id number] Richie Massimo 07/21/2017 07/21/2017 [facility] Outpatient [id number] FIRAS QUDDOS 07/25/2017 Active [facility] Primary Care [place] Outpatient [id number] Firas Quddos 07/25/2017 07/26/2017 Medical Group [facility] Primary Care [place] Phone Message [id number] 07/28/2017 07/30/2017 [facility] Outpatient [id number] FIRAS QUDDOS 08/08/2017 Active [facility] Primary Care [place] Outpatient [id number] Firas Quddos 08/08/2017 08/09/2017 Medical Group [facility] Primary Care [place] Phone Message [id number] 11/04/2017 11/06/2017 [facility] Outpatient [id number] FIRAS QUDDOS 11/06/2017 Active [facility] Primary Care [place] Outpatient [id number] Firas Quddos 11/06/2017 11/07/2017 [facility] Group [facility] Primary Care [place] Phone Message [id number] 11/25/2017 11/27/2017 [facility] Group [facility] Primary Care [place] Phone Message [id number] 02/02/2018 02/04/2018 [facility] Outpatient [id number] FIRAS QUDDOS 02/05/2018 [facility] Primary Care [place] Outpatient [id number] Firas Quddos 02/05/2018 02/06/2018 [facility] Group Outpatient [id number] FIRAS QUDDOS 05/07/2018 Active [facility] Primary Care [place] Outpatient [id number] Firas Quddos 05/07/2018 05/08/2018 [facility] Outpatient [id number] [facility] 06/09/2018 [facility] [place] [facility] Pre[facility]Reg [id number] Bereket [facility] 06/09/2018 06/09/2018 Medical Group [facility] Primary Care [place] Phone Message [id number] 06/29/2018 07/01/2018 [facility] Outpatient [id number] Firas Quddos 11/25/2018 Active [facility] Primary Care [place] Outpatient [id number] Firas Quddos 11/25/2018 11/26/2018 Medical Group [facility] Primary Care [place] Between Visit [id number] 11/26/2018 11/27/2018 [facility] Outpatient [id number] Firas Quddos 12/24/2018 Active [facility] Primary Care [place] Outpatient [id number] Firas Quddos 12/24/2018 12/25/2018 Medical Group [facility] Primary Care [place] Phone Message [id number] 12/31/2018 01/02/2019 [facility] Group Outpatient [id number] Firas Quddos 01/19/2019 Active [facility] Primary Care [place] Outpatient [id number] Firas Quddos 01/19/2019 01/20/2019 Medical Group [facility] Primary Care [place] Ambulatory Pre-Reg [id number] Firas Quddos 02/15/2019 02/15/2019 [facility] Outpatient [id number] Firas Quddos 02/18/2019 [facility] Outpatient [id number] Higinio Quddos 02/19/2019 Active [facility] Procedures Procedure Code Date Perfomer Comments Source Ligation or biopsy, temporal artery 37465 06/20/2017 [facility] Biopsy of the temporal artery [id number] 06/20/2017 [facility] Biopsy of the temporal artery [id number] 06/20/2017 [facility] Group smoking/tobacco cessation, patient education and counseling 14 11/23/2014 yes [facility] Group smoking/tobacco cessation, patient education and counseling 14 05/31/2014 yes [facility] smoking/tobacco cessation, patient education and counseling 14 04/25/2014 yes [facility] smoking/tobacco cessation, patient education and counseling 14 03/25/2014 yes [facility] smoking/tobacco cessation, patient education and counseling 14 02/22/2014 yes Medical [facility] mammogram 75944 09/23/2013 completed [facility] colonoscopy 14481 09/06/2011 completed Medical [facility] bone density 4002.65 08/05/2011 completed Medical [facility] mammogram 42411 08/05/2011 completed [facility] colonoscopy 97415 12/19/2008 completed [facility] Colon operation<sup>1</sup> [id number] 07/22/2008 colon resection [facility] [place] Colon operation<sup>1</sup> [id number] 07/22/2008 colon resection [facility] Colon operation<sup>1</sup> [id number] 07/22/2008 colon resection [facility] vaginal Pap smear results 41846 12/04/2007 completed Medical [facility] bone density 4002.65 11/12/2007 completed Medical [facility] mammogram 78518 11/12/2007 completed Medical [facility] diabetic eye exam 75693.1 11/12/2007 completed [facility] Wrist repair [id number] [facility] [place] Bladder operation [id number] [facility] Colonoscopy [id number] [facility] Hysterectomy [id number] [facility] Oophorectomy [id number] [facility] ORIF - Open reduction and internal fixation of fracture [id number] [facility] Wrist repair [id number] [facility] Bladder operation [id number] [facility] Colonoscopy [id number] [facility] Hysterectomy [id number] [facility] Oophorectomy [id number] [facility] ORIF - Open reduction and internal fixation of fracture [id number] [facility] Wrist repair [id number] [facility] Assessment and Plan Assessment and Plan Date Source Extracted from:Title: Clinical Document Author: Moises Mejia MD Date: 06/20/17 Chief Complaint "I have had pain in my head and some vision changes" History of Present Illness GERARDO MELENDREZ is a 72 year old female who describes recent headaches "all over my head" and some nonspecific vision impairment. She denies blindness. Denies double vision, but some blurred vision. 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 She denies exacerbating or alleviating factors otherwise. She is not taking any other medications to treat her symptoms. No other complaints. Review of Systems Constitutional Symptoms: neg fever, neg weight loss, neg weight gain Cardiovascular: neg chest pain, neg SOB, neg palpitations Respiratory: neg SOB, neg wheezing, neg dyspnea Gastrointestinal: neg hematemesis, neg hematochezia, neg abdominal pain Genitourinary: neg frequency, neg urgency, neg dysuria, neg inguinal hernia, neg inguinal pain Musculoskeletal: neg joint pain, neg arthritis, neg muscle aches Integumentary (skin and/or breast): neg rash, neg suspicious lesions, neg discoloration Neurological: pos blurred vision, neg double vision, pos headache Psychiatric: neg anxiety, neg depression, neg insomnia Endocrine: neg polyuria, neg polydipsia, neg cold or heat intolerance Hematologic/Lymphatic: neg bleeding, neg bruising, neg edema Physical Exam Vitals and Measurements HT: 170.18 cm HT Collection: Stated WT: 68.665 kg WT Collection: Measured BP: 150/87 HR(Peripheral): 90 bpm T(O): 98.6 DegF BP Site: Left arm BP Collection: Electronic BP Collection Position: Sitting BP Cuff Size: large Activity When BP Taken: Quiet BMI: 23.71 m2 BSA: 1.8017 m2 HEENT: normocephalic, atraumatic, pupils equal and reactive, oropharynx clear, no erythema or exudates; bilateral temporal arteries are palpable, no tenderness elicited NECK: supple, non tender, no cervical adenopathy, no thyromegaly or nodules CHEST/BREAST: deferred HEART: regular, no murmur LUNG: clear bilaterally ABDOMEN: soft, non tender, non distended, no palpable mass, no guarding, no peritoneal signs, neg Bautista's sign, no hernia, normal bowel sounds GENITAL: deferred RECTAL: deferred EXTREMITIES: no clubbing, cyanosis, or edema PULSES: 2+ and equal bilaterally SKIN: no lesions or nodules NEURO: grossly non focal, sensory motor intact PSYCH: no anxiety of depression, normal affect Assessment/Plan schedule bilateral temporal artery biopsy Risks and benefits as well as alternatives to surgery discussed in detail with the patient. Patient verbalizes understanding and agrees to proceed as discussed above. Questions have been answered. 1. Headache Ordered: [id number] Office/Outpatient Visit , 06/19/17 7:48:00 [employer], 24 hr 2. Visual disturbance Ordered: [id number] Office/Outpatient Visit New, 06/19/17 7:48:00 [employer], 24 hr 06/20/2017 [facility] Plan of Care No Data Provided for This Section Social History Social History Date Source Social History TypeResponse Substance Abuse Use: None. Employment/School Status: Retired. Alcohol Past Smoking Status Current every day smoker; Type: Cigarettes; Exposure to Tobacco Smoke None; Cigarette Smoking Last 365 Days No; Reg Smoking Cessation Counseling No; Tobacco use per day: 10; entered on: 01/19/19 06/19/2017 [facility] Social History TypeResponse Substance Abuse Use: None. Employment/School Status: Retired. Alcohol Past Smoking Status Current every day smoker; Type: Cigarettes; Exposure to Tobacco Smoke self; Cigarette Smoking Last 365 Days Yes; Reg Smoking Cessation Counseling Yes; Tobacco use per day: 10; 06/19/2017 [facility] Social History TypeResponse Smoking Status Former smoker; Exposure to Tobacco Smoke None; Cigarette Smoking Last 365 Days No; Reg Smoking Cessation Counseling No 05/22/2016 CHARLEEN Lovett Family History No Data Provided for This Section Advance Directives No Data Provided for This Section Functional Status No Data Provided for This Section
--- OUTSIDE RECORDS SUMMARY | 2019-02-18 21:26 | XMS REPORT | Summary of Care ---
Author Author [facility] Organization [facility] Address Unknown Phone Unavailable Encounter MYNOR Barrow(GINO) [id number] Date(s): 11/06/17 - 11/06/17 [facility] [address] [place] [address]- [phone] Discharge Disposition: Home or Self Care Attending Physician: Higinio Vela MD Referring Physician: Higinio Vela MD Vital Signs Most recent to 1 oldest [Reference Range]: Temperature Oral 98.1 DegF [96.4-99.1 DegF] (11/06/17 11:01 AM) Blood Pressure 140/103 mmHg [90-140/60-90 mmHg] (11/06/17 11:01 AM) Peripheral Pulse 80 bpm Rate [60-100 bpm] (11/06/17 11:01 AM) Weight 71.364 kg (11/06/17 11:01 AM) Problem List Condition Effective Dates Status Health [...] [employer] on 12/20/14. 8Data migrated from [employer] on 12/20/14. Allergies, Adverse Reactions, Alerts Substance Reaction Severity Status NKDA Active Medications Ambien 5 mg oral tablet 5 mg=1 tab, PO, Bedtime, PRN for sleep, # 30 tab, 2 Refill(s) Start Date: 11/06/17 Stop Date: 07/08/18 Status: Ordered gabapentin 100 mg oral capsule 500 mg=5 cap, PO, TID, 0 Refill(s) Start Date: 11/06/17 Status: Ordered lisinopril 5 mg oral tablet 5 mg=1 tab, PO, Daily, # 30 tab, 0 Refill(s), other Start Date: 11/06/17 Status: Ordered predniSONE 1 mg oral delayed release tablet 8 mg=8 tab, PO, Daily, 0 Refill(s) Start Date: 11/06/17 Status: Ordered Results No data available for [...] Tobacco use per day: 10; entered on: 11/06/17 Assessment and Plan No data available for this section
--- OUTSIDE RECORDS SUMMARY | 2019-02-18 21:26 | XMS REPORT | Summary of Care ---
Author Author [facility] Organization [facility] Address Unknown Phone Unavailable Care Team Providers Care Laundry Tech Name Role Phone Higinio Vela PCP Encounter HQ Jameelr_xavier(FIN) [id number] Date(s): 02/15/19 - 02/15/19 [facility] [address] [place] [address]- [phone] Attending Physician: Higinio Vela MD Referring Physician: Higinio Vela MD Vital Signs No data available for this [...] Reactions, Alerts No Known Medication Allergies Medications No data available for this section Results No data available for this section [...] use per day: 10; entered on: 01/19/19 Assessment and Plan No data available for this section
--- OUTSIDE RECORDS SUMMARY | 2019-02-18 21:26 | XMS REPORT | Summary of Care ---
Author Author [facility] Organization [facility] Address Unknown Phone Unavailable Encounter MYNOR Barrow(FIN) [id number] Date(s): 11/04/17 - 11/05/17 [facility] [address] [place] [address]- [phone] Vital Signs No data available for this [...] Substance Reaction Severity Status NKDA Active Medications No data available for this section [...]
--- OUTSIDE RECORDS SUMMARY | 2019-02-18 21:26 | XMS REPORT | Summary of Care ---
Author Author [facility] General Surgery [facility] Organization [facility] General Surgery [facility] Address Unknown Phone Unavailable Encounter MYNOR Barrow(GINO) [id number] Date(s): 07/07/17 - 07/07/17 [facility] [address] [facility] [address] [place] [address]- [phone] Discharge Disposition: Home or Self Care Attending Physician: Jeronimo Maloney MD Referring Physician: Higinio Vela MD Vital Signs Most recent to 1 oldest [Reference Range]: Height 170.18 cm (07/07/17 2:54 PM) Temperature Oral 98.3 DegF [96.4-99.1 DegF] (07/07/17 2:54 PM) Blood Pressure 137/80 mmHg [90-140/60-90 mmHg] (07/07/17 2:54 PM) Peripheral Pulse 87 bpm Rate [60-100 bpm] (07/07/17 2:54 PM) Weight 69.659 kg (07/07/17 2:54 PM) Body Mass Index 24.05 m2 (07/07/17 2:54 PM) Problem List Condition Effective Dates Status [...] Reaction Severity Status NKDA Active Medications No Known Medications Results No data available for this section [...]
--- OUTSIDE RECORDS SUMMARY | 2019-02-18 21:26 | XMS REPORT | Summary of Care ---
Author Author [facility] General Surgery [facility] General Surgery [place] Address Unknown Phone Unavailable Encounter MYNOR Barrow(GINO) [id number] Date(s): 06/19/17 - 06/19/17 [facility] General Surgery [place] [address] [place] [address]- [phone] Discharge Disposition: Home or Self Care Attending Physician: Jeronimo Maloney MD Referring Physician: Nichole Anguiano MD Vital Signs Most recent to 1 oldest [Reference Range]: Height 170.18 cm (06/19/17 2:49 PM) Temperature Oral 98.6 DegF [96.4-99.1 DegF] (06/19/17 2:49 PM) Blood Pressure 150/87 mmHg [90-140/60-90 mmHg] *HI* (06/19/17 2:49 PM) Peripheral Pulse 90 bpm Rate [60-100 bpm] (06/19/17 2:49 PM) Weight 68.665 kg (06/19/17 2:49 PM) Body Mass Index 23.71 m2 (06/19/17 2:49 PM) Problem List Condition Effective Dates Status [...] 12/20/14. 4Data migrated from [employer] on 6/2/15. 5Data migrated from [employer] on 12/20/14. [...] Procedures Procedure Date Related Diagnosis Body Site Colon operation1 07/22/08 Bladder operation Colonoscopy Hysterectomy [...] Counseling No; Tobacco use per day: 10; Assessment and Plan No data available for this section
--- OUTSIDE RECORDS SUMMARY | 2019-02-18 21:26 | XMS REPORT | Summary of Care ---
Author Author [facility] Organization [facility] Address Unknown Phone Unavailable Encounter HQ Danial(FIN) [id number] Date(s): 07/28/17 - 07/29/17 [facility] [address] [place] [address]- [phone] Vital Signs No data available for this [...] Tobacco use per day: 10; entered on: 07/25/17 Assessment and Plan No data available for this section
--- OUTSIDE RECORDS SUMMARY | 2019-02-18 21:26 | XMS REPORT | Summary of Care ---
Author Author [facility] Organization [facility] Address Unknown Phone Unavailable Encounter MYNOR Barrow(GINO) [id number] Date(s): 06/20/17 - 06/20/17 [facility] [address] [place] [address] [phone] Discharge Disposition: Home or Self Care Attending Physician: Jeronimo Maloney MD Referring Physician: Jeronimo Maloney MD Vital Signs 1 2 3 Most recent to oldest [Reference Range]: 170.18 cm (06/20/17 7:12 AM) Height 98.2 DegF (06/20/17 7:24 AM) Temperature Oral [96.4-99.1 DegF] 122/156 mmHg (06/20/17 12:00 PM) 118/81 mmHg (06/20/17 11:15 AM) 136/74 mmHg (06/20/17 11:00 AM) Blood Pressure [90-140/60-90 mmHg] 18 BRMIN (06/20/17 11:15 AM) 18 BRMIN (06/20/17 11:00 AM) 18 BRMIN (06/20/17 10:45 AM) Respiratory Rate [14-20 BRMIN] 84 bpm (06/20/17 7:24 AM) Peripheral Pulse Rate [60-100 bpm] 68.722 kg (06/20/17 7:12 AM) Weight 23.73 m2 (06/20/17 7:12 AM) Body Mass Index Problem List Condition Effective Dates Status Health [...] Substance Reaction Severity Status NKDA Active Medications ANES acetaminophen 1,000 mg, Route: PO, Drug form: TAB, ONCE, Dosing Weight 68.722, kg, PRN Pain Sc ore 1-3, Start date: 06/20/17 11:01:00 GRAVEL INSPECTOR Start Date: 06/20/17 Stop Date: 06/20/17 Status: Discontinued ANES albuterol 0.083% inhalation solution 2.49 mg, Route: NEB, Q20Min, Dosing Weight 68.722, kg, PRN Wheezing, Priority: S TAT, Start date: 06/20/17 11:01:00 GRAVEL INSPECTOR, Duration: 30 day, Stop date: 07/20/17 11 :00:00 GRAVEL INSPECTOR Start Date: 06/20/17 Stop Date: 06/20/17 Status: Discontinued ANES diphenhydrAMINE 12.5 mg, Route: IVP, Drug form: INJ, Q6H, Dosing Weight 68.722, kg, PRN Itching, Start date: 06/20/17 11:01:00 GRAVEL INSPECTOR, Duration: 30 day, Stop date: 07/20/17 11:00: 00 GRAVEL INSPECTOR Start Date: 06/20/17 Stop Date: 06/20/17 Status: Discontinued ANES fentaNYL 25 microgram, Route: IVP, Q5Min, Dosing Weight 68.722, kg, PRN Pain Score 4-6, P riority: Routine, Start date: 06/20/17 11:01:00 GRAVEL INSPECTOR, Duration: 4 doses or times, Stop date: Limited # of times Start Date: 06/20/17 Stop Date: 06/20/17 Status: Discontinued ANES fentaNYL 50 microgram, Route: IVP, Q5Min, Dosing Weight 68.722, kg, PRN Pain Score 7-10, Priority: Routine, Start date: 06/20/17 11:01:00 GRAVEL INSPECTOR, Duration: 2 doses or times , Stop date: Limited # of times Start Date: 06/20/17 Stop Date: 06/20/17 Status: Discontinued ANES flumazenil 0.2 mg, Route: IVP, PRN, Dosing Weight 68.722, kg, PRN Benzodiazepine Reversal, Initial dose, Start date: 06/20/17 11:01:00 GRAVEL INSPECTOR, Duration: 30 day, Stop date: 11:00:00 GRAVEL INSPECTOR Start Date: 06/20/17 Stop Date: 06/20/17 Status: Discontinued ANES hydrALAZINE 10 mg, Route: IVP, Q20Min, Dosing Weight 68.722, kg, PRN Elevated BP, Start date : 06/20/17 11:01:00 GRAVEL INSPECTOR, Duration: 2 doses or times, Stop date: Limited # of bess es Start Date: 06/20/17 Stop Date: 06/20/17 Status: Discontinued ANES HYDROmorphone 0.5 mg, Route: IVP, Q5Min, Dosing Weight 68.722, kg, PRN Pain Score 7-10, Start date: 06/20/17 11:01:00 GRAVEL INSPECTOR, Duration: 4 doses or times, Stop date: Limited # of times Start Date: 06/20/17 Stop Date: 06/20/17 Status: Discontinued ANES ketOROLAC 30 mg, 1 mL, Route: IVP, Drug form: INJ, ONCE, Dosing Weight 68.722, kg, Start d ate: 06/20/17 11:01:00 GRAVEL INSPECTOR, Stop date: 06/20/17 11:01:00 GRAVEL INSPECTOR Notes: (Same as:Toradol) IV bolus must be given >15 seconds. Give IM administration slowly and deeply into the muscle.Not for use > 4 days MEDICATION WASTE Product Size: 30 mgProduct Wasted: ___ mg Start Date: 06/20/17 Stop Date: 06/20/17 Status: Ordered ANES labetalol 10 mg, Route: IVP, Q5Min, Dosing Weight 68.722, kg, PRN Elevated BP, Start date: 06/20/17 11:01:00 GRAVEL INSPECTOR, Duration: 5 doses or times, Stop date: Limited # of times Start Date: 06/20/17 Stop Date: 06/20/17 Status: Discontinued ANES naloxone 0.4 mg, Route: IVP, Q2MIN, Dosing Weight 68.722, kg, PRN Narcotic Reversal, Star t date: 06/20/17 11:01:00 GRAVEL INSPECTOR, Duration: 8 doses or times, Stop date: Limited # of times Start Date: 06/20/17 Stop Date: 06/20/17 Status: Discontinued ANES ondansetron 4 mg, Route: IVP, ONCE, Dosing Weight 68.722, kg, PRN Nausea & Vomiting, Start date: 06/20/17 11:01:00 GRAVEL INSPECTOR Start Date: 06/20/17 Stop Date: 06/20/17 Status: Discontinued ANES oxyCODONE 5 mg, Route: PO, Drug form: TAB, Q4H, Dosing Weight 68.722, kg, PRN Pain Score 4 -6, Start date: 06/20/17 11:01:00 GRAVEL INSPECTOR, Duration: 30 day, Stop date: 07/20/17 11: 00:00 GRAVEL INSPECTOR Start Date: 06/20/17 Stop Date: 06/20/17 Status: Discontinued ceFAZolin 2 gm, Route: IVPB, ONCE, Dosing Weight 68.722, kg, Start date: 06/20/17 7:26:00 GRAVEL INSPECTOR, Stop date: 06/20/17 7:26:00 GRAVEL INSPECTOR, Surgical Prophylaxis Only; For patients < 120 kg, ABX Indication: Surgical Prophylaxis Start Date: 06/20/17 Stop Date: 06/20/17 Status: Ordered ceFAZolin (ANES) Route: IV, Drug form: INJ, ONCE, Stop date: 06/20/17 9:58:00 GRAVEL INSPECTOR Start Date: 06/20/17 Stop Date: 06/20/17 Status: Completed dexamethasone (ANES) Route: IV, Drug form: INJ, ONCE, Stop date: 06/20/17 10:03:00 GRAVEL INSPECTOR Start Date: 06/20/17 Stop Date: 06/20/17 Status: Completed fentaNYL (ANES) Route: IV, Drug form: INJ, ONCE, Stop date: 06/20/17 9:53:00 GRAVEL INSPECTOR Start Date: 06/20/17 Stop Date: 06/20/17 Status: Completed Lactated Ringers Injection IV (ANES) 1000 mL Route: IV, Total Volume: 1,000, Start date: 06/20/17 9:08:00 GRAVEL INSPECTOR, Stop date: 08/06 10:08:00 GRAVEL INSPECTOR Start Date: 06/20/17 Stop Date: 06/20/17 Status: Completed Lactated Ringers Injection IV 1000 mL 1,000 mL, Rate: 25 ml/hr, Infuse over: 40 hr, Route: IV, Dosing Weight 68.722 kg , Total Volume: 1,000, Start date: 06/20/17 9:03:00 GRAVEL INSPECTOR, Duration: 30 day, Stop date: 07/20/17 9:02:00 GRAVEL INSPECTOR, 1.81, m2 Start Date: 06/20/17 Stop Date: 06/20/17 Status: Discontinued lidocaine (ANES) Route: IV, Drug form: INJ, ONCE, Stop date: 06/20/17 9:58:00 GRAVEL INSPECTOR Start Date: 06/20/17 Stop Date: 06/20/17 Status: Completed midazolam (ANES) Route: IV, Drug form: SOLN, ONCE, Stop date: 06/20/17 9:53:00 GRAVEL INSPECTOR Start Date: 06/20/17 Stop Date: 06/20/17 Status: Completed ondansetron (ANES) Route: IV, Drug form: INJ, ONCE, Stop date: 06/20/17 10:03:00 GRAVEL INSPECTOR Start Date: 06/20/17 Stop Date: 06/20/17 Status: Completed oxyCODONE 5 mg oral tablet 10 mg, Route: PO, Drug form: TAB, ONCE, Dosing Weight 68.722, kg, PRN Pain Score 7-10, Start date: 06/20/17 11:33:00 GRAVEL INSPECTOR Start Date: 06/20/17 Stop Date: 06/20/17 Status: Completed propofol (ANES) Route: IV, Drug form: INJ, ONCE, Stop date: 06/20/17 9:58:00 GRAVEL INSPECTOR Start Date: 06/20/17 Stop Date: 06/20/17 Status: Completed Tylenol 500 mg, PO, TID, as needed for headache Start Date: 06/20/17 Status: Ordered Tylenol with Codeine #3 oral tablet 1 tab, PO, Q4H, PRN for pain, # 20 tab, 0 Refill(s) Start Date: 06/20/17 Status: Ordered Results No data available for this section Immunizations Given and Recorded Vaccine Date Status Refusal Reason pneumococcal 13-valent vaccine 05/24/15 Given Procedures Procedure Date Related Diagnosis Body Site Ligation or biopsy, temporal artery 06/20/17 Colon operation1 07/22/08 Bladder [...] use per day: 10; Assessment and Plan Extracted from: Title: Clinical Document Author: Jeronimo Maloney MD Date: 06/20/17 Chief Complaint "I have [...] neg bruising, neg edema Physical Exam Vitals & Measurements HT: 170.18 cm HT Collection: Stated [...] Questions have been answered. 1. Headache Ordered: [id number] Office/Outpatient Visit 06/19/17 7:48:00 GRAVEL INSPECTOR, 24 hr 2. Visual disturbance Ordered: [id number] Office/Outpatient Visit 06/19/17 7:48:00 GRAVEL INSPECTOR, 24 hr
--- OUTSIDE RECORDS SUMMARY | 2019-02-18 21:26 | XMS REPORT | Summary of Care ---
Author Author [facility] Organization [facility] Address Unknown Phone Unavailable Encounter HQ Danial(FIN) [id number] Date(s): 07/17/17 - 07/18/17 [facility] [address] [place] [address] [phone] Vital Signs No data available for this [...]
--- OUTSIDE RECORDS SUMMARY | 2019-02-18 21:26 | XMS REPORT | Summary of Care ---
Author Author [facility] Organization [facility] Address Unknown Phone Unavailable Encounter MYNOR Barrow(FIN) [id number] Date(s): 07/10/17 - 07/10/17 [facility] [address] [place] [address]- [phone] Discharge Disposition: Home or Self Care Attending Physician: Higinio Vela MD Referring Physician: Higinio Vela MD Vital Signs Most recent to 1 oldest [Reference Range]: Height 170.18 cm (07/10/17 11:32 AM) Temperature Oral 97.9 DegF [96.4-99.1 DegF] (07/10/17 11:32 AM) Blood Pressure 160/89 mmHg [90-140/60-90 mmHg] *HI* (07/10/17 11:32 AM) Peripheral Pulse 80 bpm Rate [60-100 bpm] (07/10/17 11:32 AM) Weight 69.659 kg (07/10/17 11:32 AM) Body Mass Index 24.05 m2 (07/10/17 11:32 AM) Problem List Condition Effective Dates Status [...] for sleep, # 30 tab, 0 Refill(s) Start Date: 07/10/17 Stop Date: 07/10/18 Status: Ordered lisinopril 10 mg oral tablet 10 mg=1 tab, PO, Daily, # 30 tab, 0 Refill(s), Pharmacy: [facility] 05 15 Start Date: 07/10/17 Status: Ordered Results No data available for [...]
--- OUTSIDE RECORDS SUMMARY | 2019-02-18 21:26 | XMS REPORT | Summary of Care ---
Author Author [facility] Organization [facility] Address Unknown Phone Unavailable Encounter MYNOR Barrow(GINO) [id number] Date(s): 06/17/17 - 06/17/17 [facility] [address] [place] [address]- [phone] Discharge Disposition: Home or Self Care Attending Physician: Higinio Vela MD Referring Physician: Nichole Anguinao MD Vital Signs Most recent to 1 oldest [Reference Range]: Height 170.18 cm (06/17/17 11:21 AM) Temperature Oral 97.9 DegF [96.4-99.1 DegF] (06/17/17 11:21 AM) Blood Pressure 151/78 mmHg [90-140/60-90 mmHg] *HI* (06/17/17 11:21 AM) Peripheral Pulse 88 bpm Rate [60-100 bpm] (06/17/17 11:21 AM) Weight 69.091 kg (06/17/17 11:21 AM) Body Mass Index 23.86 m2 (06/17/17 11:21 AM) Problem List Condition Effective Dates Status Health Status Informant Abdominal aortic Active aneurysm(Confirmed) Anxious Active depression(Confirmed ) Hyperlipidemia(Confi 02/22/14 Active rmed)1, 2 Impaired fasting 02/22/14 Active glycaemia3, 4 Insomnia(Confirmed)5 02/22/14 Active , 6 Malignant tumor of 02/22/14 Active colon(Confirmed)7, 8 1Data migrated from [employer] on 12/20/14. [...] Substance Reaction Severity Status NKDA Active Medications naproxen 500 mg oral tablet 500 mg=1 tab, PO, BID, PRN Pain, # 30 tab, 0 Refill(s), Pharmacy: [facility] [id number] Start Date: 06/17/17 Stop Date: 07/17/17 Status: Ordered predniSONE 20 mg oral tablet 60 mg=3 tab, PO, Daily, X 30 day, # 90 tab, 0 Refill(s), Pharmacy: [facility] [id number] Start Date: 06/18/17 Stop Date: 07/18/17 Status: Ordered Results No data available for this section Immunizations Given and Recorded Vaccine Date Status Refusal Reason pneumococcal 13-valent vaccine 05/24/15 Given Procedures Procedure Date Related Diagnosis Body Site Colon operation1 07/22/08 Wrist repair 1colon resection Social History Social History Type Response Substance Abuse Use: None. Alcohol Never Smoking Status Current every day smoker; Type: Cigarettes; Exposure to Tobacco Smoke self; Cigarette Smoking Last 365 Days Yes; Reg Smoking Cessation Counseling Yes; Tobacco use per day: 10; Assessment and Plan No data available for this section
--- OUTSIDE RECORDS SUMMARY | 2019-02-18 21:26 | XMS REPORT | Summary of Care ---
Author Author [facility] Organization [facility] Address Unknown Phone Unavailable Encounter MYNOR Barrow(GINO) [id number] Date(s): 07/25/17 - 07/25/17 [facility] [address] [place] [address]- [phone] Discharge Disposition: Home or Self Care Attending Physician: Higinio Vela MD Referring Physician: Higinio Vela MD Vital Signs Most recent to 1 2 oldest [Reference Range]: Height 170.18 cm (07/25/17 12:14 PM) Temperature Oral 98.4 DegF [96.4-99.1 DegF] (07/25/17 12:14 PM) Blood Pressure 98/62 mmHg 89/60 mmHg [90-140/60-90 mmHg] (07/25/17 12:58 PM) *LOW* (07/25/17 12:14 PM) Respiratory Rate 17 BRMIN [14-20 BRMIN] (07/25/17 12:14 PM) Peripheral Pulse 90 bpm Rate [60-100 bpm] (07/25/17 12:14 PM) Weight 67.443 kg (07/25/17 12:14 PM) Body Mass Index 23.29 m2 (07/25/17 12:14 PM) Problem List Condition Effective Dates Status Health Status Informant Abdominal aortic Active aneurysm(Confirmed) Anxious Active depression(Confirmed ) Hyperlipidemia(Confi 02/22/14 Active rmed)1, 2 Impaired fasting 02/22/14 Active glycaemia3, 4 Insomnia(Confirmed)5 02/22/14 Active , 6 Colon Resolved cancer(Confirmed) Malignant tumor of 02/22/14 Active colon(Confirmed)7, 8 Smoker(Confirmed) Active 1Data migrated from [employer] on 6/2/15. 2Data migrated from [employer] on 12/20/14. 3Data migrated from [employer] on 12/20/14. 4Data migrated from [employer] on 12/20/14. 5Data migrated from [employer] on 12/20/14. 6Data migrated from [employer] on 12/20/14. 7Data migrated from [employer] on 12/20/14. 8Data migrated from [employer] on 12/20/14. Allergies, Adverse Reactions, Alerts Substance Reaction Severity Status NKDA Active Medications atorvastatin 20 mg oral tablet 20 mg=1 tab, PO, Bedtime, # 90 tab, 1 Refill(s), Pharmacy: [facility] [id number] Start Date: 07/25/17 Status: Ordered Results No data available for [...]
--- OUTSIDE RECORDS SUMMARY | 2019-02-18 21:26 | XMS REPORT | Summary of Care ---
Author Author [facility] Surgery [facility] Organization [facility] General Surgery [facility] Address Unknown Phone Unavailable Encounter MYNOR Barrow(FIN) [id number] Date(s): 06/20/17 - 06/20/17 [facility] General Surgery [facility] [address] [facility] [address] [place] [address] [phone] Attending Physician: Fantasma Gross MD Referring Physician: Higinio Vela MD Vital [...]
--- OUTSIDE RECORDS SUMMARY | 2019-02-18 21:26 | XMS REPORT | Summary of Care ---
Author Author [facility] Organization [facility] Address Unknown Phone Unavailable Care Team Providers Care Alarm Signal Operator Name Role Phone Higinio Vela PCP Encounter HQ Niesha_xavier(FIN) [id number] Date(s): 01/19/19 - 01/19/19 [facility] [address] [place] [address]- [phone] Discharge Disposition: Home or Self Care Attending Physician: Higinio Vela MD Referring Physician: Higinio Vela MD Vital Signs Most recent to 1 oldest [Reference Range]: Height 170.18 cm (01/19/19 3:21 PM) Temperature Oral 98.6 DegF [96.4-99.1 DegF] (01/19/19 3:21 PM) Blood Pressure 130/85 mmHg [90-140/60-90 mmHg] (01/19/19 3:21 PM) Peripheral Pulse 87 bpm Rate [60-100 bpm] (01/19/19 3:21 PM) Weight 66.08 kg (01/19/19 3:21 PM) Body Mass Index 22.82 m2 (01/19/19 3:21 PM) Problem List Condition Effective Dates Status [...] Alerts No Known Medication Allergies Medications Paxil 40 mg oral tablet 40 mg=1 tab, PO, Daily, # 30 tab, 0 Refill(s), Pharmacy: [id number] Start Date: 01/19/19 Status: Ordered Results No data available for [...]
--- OUTSIDE RECORDS SUMMARY | 2019-02-18 21:27 | XMS REPORT | Continuity of Care Document ---
Author Author [facility] Organization [facility] Address Unknown Phone Unavailable Care Team Providers Care Granulator Tender Name Role Phone MD Silvio, Nichole PP Unavailable Insurance Providers Payer name Policy type / Coverage type Policy ID Covered alliance party ID Policy [place]IC[place]MEDIC[place]ACEMENT PPO Encounters Encounter Performer Location Date Office Visit Nichole Anguiano MD [facility] May 31, 2014 Problems Problem Effective Dates Problem Status ABDOMINAL AORTIC ANEURYSM Feb 22, 2014 Active COLON CANCER Feb 22, 2014 Active INSOMNIA, CHRONIC Feb 22, 2014 Active HYPERLIPIDEMIA Feb 22, 2014 Active IMPAIRED FASTING GLUCOSE Feb 22, 2014 Active ELEVATED BLOOD PRESSURE WITHOUT DIAGNOSIS OF HYPERTENSION Feb 22, 2014 Inactive B12 DEFICIENCY Feb 22, 2014 Inactive COUGH Feb 22, 2014 Inactive SMOKER Feb 22, 2014 Inactive FATIGUE Feb 22, 2014 Inactive ADJUSTMENT DISORDER WITH DEPRESSED MOOD Mar 25, 2014 Active Procedures Date Description Comments Feb 22, 2014 smoking status Current every day smoker Sep 06, 2011 colonoscopy completed Feb 22, 2014 smoking/tobacco cessation, patient education and counseling yes Mar 25, 2014 smoking status Current every day smoker Mar 25, 2014 smoking/tobacco cessation, patient education and counseling yes December 04, 2007 vaginal Pap smear results completed Aug 05, 2011 bone density completed Aug 05, 2011 mammogram completed Nov 12, 2007 bone density completed Nov 12, 2007 mammogram completed Dec 19, 2008 colonoscopy completed Nov 12, 2007 diabetic eye exam completed Sep 23, 2013 mammogram completed Apr 25, 2014 smoking status Former smoker Apr 25, 2014 smoking/tobacco cessation, patient education and counseling yes May 31, 2014 smoking status Former smoker May 31, 2014 smoking/tobacco cessation, patient education and counseling yes Medications Medication Instructions Start Date Status FISH OIL BURP-LESS 1200 MG CAPS 1 tab by mouth twice a day Feb 22, 2014 Active CALCIUM CARBONATE 600 MG TABS 2 tabs twice a day Feb 22, 2014 Active VITAMIN D3 1000 UNIT CAPS 2 tabs twice a day Feb 22, 2014 Active CENTRUM SILVER ULTRA WOMENS TABS 1 tab by mouth once a day Feb 22, 2014 Active ATORVASTATIN CALCIUM 20 MG TABS 1 tablet daily Feb 22, 2014 Active MIRTAZAPINE 30 MG TBDP one po q hs Mar 25, 2014 Inactive TRAZODONE HCL 50 MG TABS 2 at bed time Feb 22, 2014 Inactive MAGNESIUM GLUCONATE 500 MG TABS 1 tab by mouth once a day Feb 22, 2014 Inactive LEXAPRO 20 MG TABS 1 tablet daily Apr 25, 2014 Active TRAZODONE HCL 50 MG TABS 1 tablet at bedtime May 31, 2014 Active Vital Signs Date Description Test Result Feb 22, 2014 height E&M - 8302-2 HEIGHT 67 in Feb 22, 2014 weight E&M - 3141-9 WEIGHT 145 lb Feb 22, 2014 temperature E&M TEMPERATURE 97.7 deg f Feb 22, 2014 pulse rate E&M - 8867-4 PULSE RATE 74 /min Feb 22, 2014 blood pressure, systolic - 8480-6 BP SYSTOLIC 122 mm Hg Feb 22, 2014 blood pressure, diastolic - 8462-4 BP DIASTOLIC 78 mm Hg Mar 25, 2014 height E&M - 8302-2 HEIGHT 67 in Mar 25, 2014 weight E&M - 3141-9 WEIGHT 143 lb Mar 25, 2014 temperature E&M TEMPERATURE 97.3 deg f Mar 25, 2014 pulse rate E&M - 8867-4 PULSE RATE 86 /min Mar 25, 2014 blood pressure, systolic - 8480-6 BP SYSTOLIC 122 mm Hg Mar 25, 2014 blood pressure, diastolic - 8462-4 BP DIASTOLIC 78 mm Hg Apr 25, 2014 height E&M - 8302-2 HEIGHT 67 in Apr 25, 2014 weight E&M - 3141-9 WEIGHT 142.38 lb Apr 25, 2014 temperature E&M TEMPERATURE 97.2 deg f Apr 25, 2014 pulse rate E&M - 8867-4 PULSE RATE 82 /min Apr 25, 2014 blood pressure, systolic - 8480-6 BP SYSTOLIC 122 mm Hg Apr 25, 2014 blood pressure, diastolic - 8462-4 BP DIASTOLIC 64 mm Hg May 31, 2014 height E&M - 8302-2 HEIGHT 67 in May 31, 2014 weight E&M - 3141-9 WEIGHT 144.25 lb May 31, 2014 temperature E&M TEMPERATURE 97.6 deg f May 31, 2014 pulse rate E&M - 8867-4 PULSE RATE 69 /min May 31, 2014 blood pressure, systolic - 8480-6 BP SYSTOLIC 140 mm Hg May 31, 2014 blood pressure, diastolic - 8462-4 BP DIASTOLIC 60 mm Hg Results Date Description Test Name Value Reference Interpretation Status Feb 22, 2014 hemoglobin, blood HGB 13.7 g/dL 12.0-16.0 Feb 22, 2014 hematocrit, blood HCT 40.6 % 36.0-48.0 Feb 22, 2014 platelet count PLATELETS 230 K/CMM /mm3 133-450 Feb 22, 2014 hemoglobin A1C, blood, as % of total hemoglobin HGBA1C 6.1 % <=5.6 High Feb 22, 2014 cholesterol, serum CHOLESTEROL 128 mg/dl <=199 Feb 22, 2014 triglyceride, serum, fasting TRIGLYCERIDE 70 mg/dl <=149 Feb 22, 2014 HDL cholesterol, serum HDL 57 mg/dl >=61 Low Feb 22, 2014 LDL cholesterol, serum LDL 57 mg/dl <=99 Feb 22, 2014 sodium, serum SODIUM 140 MEQ/L mmol/L 135-145 Feb 22, 2014 potassium, serum POTASSIUM 4.2 MEQ/L mmol/L 3.5-5.1 Feb 22, 2014 creatinine, serum CREATININE 0.9 mg/dL 0.5-1.4 Feb 22, 2014 urea nitrogen, blood BUN 7 mg/dL 7-22 Feb 22, 2014 urea nitrogen/creatinine ratio, serum BUN/CREAT 8 null 6-25 Feb 22, 2014 albumin, serum ALBUMIN 4.1 g/dL 3.5-5.0 Feb 22, 2014 calcium, serum CALCIUM 9.7 mg/dL 8.5-10.5 Feb 22, 2014 alanine aminotransferase (SGPT), serum SGPT (ALT) 24 U/L 0-65 Feb 22, 2014 aspartate aminotransferase (SGOT), serum SGOT (AST) 15 U/L 0-37 Feb 22, 2014 alkaline phosphatase, serum ALK PHOS 64 U/L 39-136 Feb 22, 2014 thyroid stimulating hormone, serum TSH 2.880 uIU/mL 0.360-3.740 December 04, 2007 vaginal Pap smear results PAP SMEAR completed null
--- OUTSIDE RECORDS SUMMARY | 2019-02-18 21:27 | XMS REPORT | Summary of Care ---
Author Author [facility] Urology [facility] Organization [facility] Address Unknown Phone Unavailable Care Team Providers Care Outer Diameter Grinder Tool Name Role Phone Higinio Vela PCP Encounter HQ Niesha_xavier([facility]) [id number] Date(s): 06/09/18 - 06/09/18 [facility] Urology [facility] [address] [place], [place] [id number]- Attending Physician: Dragan Sultana MD Referring Physician: Higinio Vela MD Vital [...]
--- OUTSIDE RECORDS SUMMARY | 2019-02-18 21:27 | XMS REPORT | Continuity of Care Document ---
Author Author [facility] Organization [facility] Address Unknown Phone Unavailable Care Team Providers Care Director Of Vendor Management Name Role Phone MD Silvio, Nichole PP Unavailable Insurance Providers Payer name Policy type / Coverage type Policy ID Covered alliance party ID Policy [employer] HU[place] - [employer]ALTH[employer] MEDICARE A Encounters Encounter Performer Location Date Lab Report Nichole Anguiano MD [facility] Feb 22, 2014 Problems Problem Effective Dates Problem Status ABDOMINAL AORTIC ANEURYSM Feb 22, 2014 Active COLON CANCER Feb 22, 2014 Active INSOMNIA, CHRONIC Feb 22, 2014 Active HYPERLIPIDEMIA Feb 22, 2014 Active IMPAIRED FASTING GLUCOSE Feb 22, 2014 Active ELEVATED BLOOD PRESSURE WITHOUT DIAGNOSIS OF HYPERTENSION Feb 22, 2014 Inactive B12 DEFICIENCY Feb 22, 2014 Active COUGH Feb 22, 2014 Inactive SMOKER Feb 22, 2014 Inactive FATIGUE Feb 22, 2014 Active Procedures Date Description Comments Feb [...] once a day Feb 22, 2014 Active MAGNESIUM GLUCONATE 500 MG TABS 1 tab by mouth once a day Feb 22, 2014 Active ATORVASTATIN CALCIUM 20 MG TABS 1 tablet daily Feb 22, 2014 Active TRAZODONE HCL 50 MG TABS 1 tablet at bedtime Feb 22, 2014 Active Vital Signs Date Description Test Result Feb 22, 2014 height E&M HEIGHT 67 in Feb 22, 2014 weight E&M WEIGHT 145 lb Feb 22, 2014 temperature E&M TEMPERATURE 97.7 deg f Feb 22, 2014 pulse rate E&M PULSE RATE 74 /min Feb 22, 2014 blood pressure, systolic BP SYSTOLIC 122 mm Hg Feb 22, 2014 blood pressure, diastolic BP DIASTOLIC 78 mm Hg Results Date Description Test Name [...]
--- OUTSIDE RECORDS SUMMARY | 2019-02-18 21:27 | XMS REPORT | Summary of Care ---
Author Author [facility] Organization [facility] Address Unknown Phone Unavailable Care Team Providers Care Scientific Recruiter Name Role Phone JoseHiginio melendez Carmelita PCP Encounter HQ Niesha_xavier(FIN) [id number] Date(s): 12/31/18 - 01/01/19 [facility] [address] [place] [address]- [phone] Vital Signs No data available for this [...]
--- OUTSIDE RECORDS SUMMARY | 2019-02-18 21:27 | XMS REPORT | Continuity of Care Document ---
Author Author [facility] Organization [facility] Address Unknown Phone Unavailable Care Team Providers Care Public Area Supervisor Name Role Phone MD Silvio, Nichole PP Unavailable Insurance Providers Payer name Policy type / Coverage type Policy ID Covered republican ID Policy [place] HUMANA - E[place] OF [place] - [employer] MEDICARE A Encounters Encounter Performer Location Date Office Visit Nichole Anguiano MD [facility] Apr 25, 2014 Problems Problem Effective Dates Problem Status [...] 2014 Inactive FATIGUE Feb 22, 2014 Active ADJUSTMENT DISORDER WITH DEPRESSED MOOD Mar 25, [...] at bed time Feb 22, 2014 Inactive LEXAPRO 10 MG TABS 1 tablet daily Apr 25, 2014 Active Vital Signs Date Description Test [...] - 8462-4 BP DIASTOLIC 64 mm Hg Results Date Description Test Name [...] 2014 urea nitrogen, blood BUN 7 mg/dL 7-Feb 22, 2014 urea nitrogen/creatinine ratio, serum BUN/CREAT [...]
--- OUTSIDE RECORDS SUMMARY | 2019-02-18 21:27 | XMS REPORT | Summary of Care ---
Author Author [facility] Organization [facility] Address Unknown Phone Unavailable Care Team Providers Care Crane Engineer Name Role Phone Higinio Vela PCP Encounter HQ Niesha_xavier(FIN) [id number] Date(s): 05/07/18 - 05/07/18 [facility] [address] [place] [address]- [phone] Discharge Disposition: Home or Self Care Attending Physician: Higinio Vela MD Referring Physician: Higinio Vela MD Vital Signs Most recent to 1 oldest [Reference Range]: Height 170.18 cm (05/07/18 1:09 PM) Temperature Oral 98.4 DegF [96.4-99.1 DegF] (05/07/18 1:09 PM) Blood Pressure 134/88 mmHg [90-140/60-90 mmHg] (05/07/18 1:09 PM) Peripheral Pulse 84 bpm Rate [60-100 bpm] (05/07/18 1:09 PM) Weight 66.534 kg (05/07/18 1:09 PM) Body Mass Index 22.97 m2 (05/07/18 1:09 PM) Problem List Condition Effective Dates Status [...] Reactions, Alerts No Known Medication Allergies Medications Ambien 5 mg oral tablet 5 mg=1 tab, PO, Bedtime, PRN for sleep, # 30 tab, 1 Refill(s) Start Date: 05/07/18 Stop Date: 07/07/18 Status: Completed Results No data available for this section [...] Tobacco use per day: 10; entered on: 05/07/18 Assessment and Plan No data available for this section
--- OUTSIDE RECORDS SUMMARY | 2019-02-18 21:27 | XMS REPORT | Continuity of Care Document ---
Author Author [facility] Organization [facility] Address Unknown Phone Unavailable Care Team Providers Care Four Slide Machine Setter Name Role Phone MD Silvio, Nichole PP Unavailable Insurance Providers Payer name Policy type / Coverage type Policy ID Covered constitution party ID Policy [place] HU[place]NA - E[place] [facility] Encounters Encounter Performer Location Date Lab Report Nichole Anguiano MD [facility] [place] Feb 23, 2014 Problems Problem Effective Dates Problem Status [...]
--- OUTSIDE RECORDS SUMMARY | 2019-02-18 21:27 | XMS REPORT | Summary of Care ---
Author Author [facility] Organization [facility] Address Unknown Phone Unavailable Encounter MYNOR Barrow(FIN) [id number] Date(s): 11/25/17 - 11/26/17 [facility] [address] [place] [address]- [phone] Vital Signs No data available for this [...] Substance Reaction Severity Status NKDA Active Medications lisinopril 10 mg oral tablet 10 mg=1 tab, PO, Daily, # 90 tab, 1 Refill(s), Pharmacy: [facility] [id number] Start Date: 11/25/17 Status: Ordered Results No data available for [...]
--- OUTSIDE RECORDS SUMMARY | 2019-02-18 21:27 | XMS REPORT | Summary of Care ---
Author Author [facility] Organization [facility] Address Unknown Phone Unavailable Encounter MYNOR Barrow(FIN) [id number] Date(s): 11/25/17 - 11/26/17 [facility] [address] [place] [address]- [phone] Vital Signs No data available for this [...] Daily, # 90 tab, 1 Refill(s), Pharmacy: [facility] [id number] Start Date: 11/25/17 Status: Ordered Results No [...]
--- OUTSIDE RECORDS SUMMARY | 2019-02-18 21:27 | XMS REPORT | Summary of Care ---
Author Author [facility] Organization [facility] Address Unknown Phone Unavailable Care Team Providers Care Mobile Home Set Up Person Name Role Phone Higinio Vela PCP Encounter HQ Niesha_xavier(FIN) [id number] Date(s): 11/25/18 - 11/25/18 [facility] [address] [place] [address]- [phone] Discharge Disposition: Home or Self Care Attending Physician: Higinio Vela MD Referring Physician: Higinio Vela MD Vital Signs Most recent to 1 oldest [Reference Range]: Height 170.18 cm (11/25/18 2:26 PM) Temperature Oral 98.5 DegF [96.4-99.1 DegF] (11/25/18 2:26 PM) Blood Pressure 125/85 mmHg [90-140/60-90 mmHg] (11/25/18 2:26 PM) Peripheral Pulse 85 bpm Rate [60-100 bpm] (11/25/18 2:26 PM) Weight 66.818 kg (11/25/18 2:26 PM) Body Mass Index 23.07 m2 (11/25/18 2:26 PM) Problem List Condition Effective Dates Status [...] Reactions, Alerts No Known Medication Allergies Medications Actemra 20 mg/mL intravenous solution IV, q4wk, 0 Refill(s) Start Date: 11/25/18 Status: Ordered atorvastatin 20 mg oral tablet =1 tab, PO, Bedtime, # 90 tab, 1 Refill(s), Pharmacy: [id number] Start Date: 11/25/18 Status: Ordered lisinopril 20 mg oral tablet See Instructions, TAKE 1 TABLET BY MOUTH DAILY, # 90 tab, 1 Refill(s), Pharmacy: [facility] [id number] Start Date: 11/25/18 Status: Ordered Paxil 20 mg oral tablet 20 mg=1 tab, PO, Daily, # 30 tab, 0 Refill(s), Pharmacy: [facility] [id number] Start Date: 11/25/18 Status: Ordered Vitamin D3 50,000 intl units oral capsule 50,000 IntlUnit=1 cap, PO, qWeek, # 12 cap, 0 Refill(s) Start Date: 11/25/18 Stop Date: 02/17/19 Status: Ordered Results No data available for [...] Tobacco use per day: 10; entered on: 11/25/18 Assessment and Plan No data available for this section
--- OUTSIDE RECORDS SUMMARY | 2019-02-18 21:27 | XMS REPORT | Continuity of Care Document ---
Author Author [facility] Organization [facility] Address Unknown Phone Unavailable Care Team Providers Care Violin Teacher Name Role Phone MD Silvio, Nichole PP Unavailable Insurance Providers Payer name Policy type / Coverage type Policy ID Covered democrat ID Policy [place] - [employer] MEDICARE A [place] (MEDIC[place] RE[place]ACEMENT PPO Encounters Encounter Performer Location Date Lab Report Nichole Anguiano MD [facility] November 23, 2014 Problems Problem Effective Dates Problem [...] smoking/tobacco cessation, patient education and counseling yes November 23, 2014 smoking status Former smoker November 23, 2014 smoking/tobacco cessation, patient education and counseling [...] TABS 1 tablet daily Apr 25, 2014 Inactive TRAZODONE HCL 50 MG TABS 1 tablet [...] - 8462-4 BP DIASTOLIC 60 mm Hg November 23, 2014 height E&M - 8302-2 HEIGHT 67 in November 23, 2014 weight E&M - 3141-9 WEIGHT 148.25 lb November 23, 2014 temperature E&M TEMPERATURE 98.1 deg f November 23, 2014 pulse rate E&M - 8867-4 PULSE RATE 80 /min November 23, 2014 blood pressure, systolic - 8480-6 BP SYSTOLIC 131 mm Hg November 23, 2014 blood pressure, diastolic - 8462-4 BP DIASTOLIC 84 mm Hg Results Date Description Test Name [...] stimulating hormone, serum TSH 2.880 uIU/mL 0.360-3.740 November 23, 2014 hemoglobin A1C, blood, as % of total hemoglobin HGBA1C 6.1 % <=5.6 High November 23, 2014 cholesterol, serum CHOLESTEROL 152 mg/dl <=199 November 23, 2014 triglyceride, serum, fasting TRIGLYCERIDE 88 mg/dl <=149 November 23, 2014 HDL cholesterol, serum HDL 60 mg/dl >=61 Low November 23, 2014 LDL cholesterol, serum LDL 74 mg/dl <=99 November 23, 2014 sodium, serum SODIUM 138 MEQ/L mmol/L 135-145 November 23, 2014 potassium, serum POTASSIUM 3.9 MEQ/L mmol/L 3.5-5.1 November 23, 2014 creatinine, serum CREATININE 0.7 mg/dL 0.5-1.4 November 23, 2014 urea nitrogen, blood BUN 8 mg/dL 7-November 23, 2014 urea nitrogen/creatinine ratio, serum BUN/CREAT 11 null 6-25 November 23, 2014 albumin, serum ALBUMIN 4.1 g/dL 3.5-5.0 November 23, 2014 calcium, serum CALCIUM 9.2 mg/dL 8.5-10.5 November 23, 2014 alanine aminotransferase (SGPT), serum SGPT (ALT) 25 U/L 0-65 November 23, 2014 aspartate aminotransferase (SGOT), serum SGOT (AST) 16 U/L 0-37 November 23, 2014 alkaline phosphatase, serum ALK PHOS 56 U/L 39-136 December 04, 2007 vaginal Pap smear results PAP SMEAR completed null
--- OUTSIDE RECORDS SUMMARY | 2019-02-18 21:27 | XMS REPORT | Continuity of Care Document ---
Author Author [facility] Organization [facility] Address Unknown Phone Unavailable Care Team Providers Care Paratransit Driver Name Role Phone MD Silvio, Nichole PP Unavailable Insurance Providers Payer name Policy type / Coverage type Policy ID Covered constitution party ID Policy [place] HUMANA - [place] - HEALTH[employer] MEDICARE A Encounters Encounter Performer Location Date Office Visit Nichole Anguiano MD [facility] Mar 25, 2014 Problems Problem Effective Dates Problem [...] 2014 Active TRAZODONE HCL 50 MG TABS 2 at bed time Feb 22, 2014 Active MIRTAZAPINE 30 MG TBDP one po q hs Mar 25, 2014 Active Vital Signs Date Description [...] pressure, diastolic BP DIASTOLIC 78 mm Hg Mar 25, 2014 height E&M HEIGHT 67 in Mar 25, 2014 weight E&M WEIGHT 143 lb Mar 25, 2014 temperature E&M TEMPERATURE 97.3 deg f Mar 25, 2014 pulse rate E&M PULSE RATE 86 /min Mar 25, 2014 blood pressure, systolic BP SYSTOLIC 122 mm Hg Mar 25, 2014 blood pressure, diastolic BP DIASTOLIC 78 [...]
--- OUTSIDE RECORDS SUMMARY | 2019-02-18 21:27 | XMS REPORT | Summary of Care ---
Author Author [facility] Organization [facility] Address Unknown Phone Unavailable Encounter MYNOR Barrow([facility]) [id number] Date(s): 02/05/18 - 02/05/18 [facility] [address] [place] [address]- [phone] Discharge Disposition: Home or Self Care Attending Physician: Higinio Vela MD Referring Physician: Higinio Vela MD Vital Signs Most recent to 1 oldest [Reference Range]: Height 170.18 cm (02/05/18 11:36 AM) Temperature Oral 98.4 DegF [96.4-99.1 DegF] (02/05/18 11:36 AM) Blood Pressure 129/77 mmHg [90-140/60-90 mmHg] (02/05/18 11:36 AM) Peripheral Pulse 86 bpm Rate [60-100 bpm] (02/05/18 11:36 AM) Weight 68.182 kg (02/05/18 11:36 AM) Body Mass Index 23.54 m2 (02/05/18 11:36 AM) Problem List Condition Effective Dates Status [...] # 30 tab, 2 Refill(s) Start Date: 02/05/18 Stop Date: 05/07/18 Status: Discontinued gabapentin 600 mg oral tablet 600 mg=1 tab, PO, BID, 0 Refill(s) Start Date: 02/05/18 Status: Ordered lisinopril 20 mg oral tablet 20 mg=1 tab, PO, Daily, # 30 tab, 0 Refill(s), Pharmacy: [facility] [id number] Start Date: 12/17/17 Stop Date: 02/23/18 Status: Completed lisinopril 20 mg oral tablet See Instructions, # 90 tab, Refill(s) 1, TAKE 1 TABLET BY MOUTH DAILY, Pharmacy: [facility] [id number] Start Date: 06/01/18 Status: Ordered lisinopril 20 mg oral tablet 20 mg=1 tab, PO, Daily, # 90 tab, 0 Refill(s), Pharmacy: [facility] [id number] Start Date: 02/23/18 Stop Date: 06/01/18 Status: Completed predniSONE 5 mg oral tablet 5 mg=1 tab, PO, Daily, Give with food., # 14 tab, 0 Refill(s) Start Date: 02/05/18 Stop Date: 02/19/18 Status: Ordered Results No data available for [...]
--- OUTSIDE RECORDS SUMMARY | 2019-02-18 21:27 | XMS REPORT | Summary of Care ---
Author Author [facility] Organization [facility] Address Unknown Phone Unavailable Care Team Providers Care Accounts Supervisor Name Role Phone JoseHiginio melendez Carmelita PCP Encounter HQ Niesha_xavier([facility]) [id number] Date(s): 11/26/18 - 11/27/18 [facility] [address] [place] [address]- [phone] Vital Signs No data available for this [...]
--- OUTSIDE RECORDS SUMMARY | 2019-02-18 21:27 | XMS REPORT | Summary of Care ---
Author Author [facility] [place] Organization [facility] [place] Address Unknown Phone Unavailable Encounter HQ Danial(FIN) [id number] Date(s): 06/05/16 - 06/05/16 [facility] [place] [address] [place] [address] [phone] Discharge Disposition: Home or Self Care Attending Physician: Nichole Anguiano MD Vital Signs No data available for this section Problem List Condition Effective Dates Status Health Status Informant Anxious Active depression(Confirmed ) Hyperlipidemia1, 2 02/22/14 Active Impaired fasting 02/22/14 Active glycaemia3, 4 Insomnia5, 6 02/22/14 Active 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
--- OUTSIDE RECORDS SUMMARY | 2019-02-18 21:27 | XMS REPORT | Summary of Care ---
Author Organization Unknown Address Unknown Phone Unavailable Encounter HQ Jameelr_xavier([facility]) [id number] Date(s): 02/22/14 - 02/22/14 [facility] [address] Discharge Disposition: Home Physician Attending: Nichole Anguiano MD Reason for Visit 786.2 - COUGH 305.1 - TOBACCO USE DIS Problem List No data available for this section Allergies, Adverse Reactions, Alerts No data available for this section Medications No data available for this section Medications Administered During Your Visit No data available for this section Immunizations No data available for this section
--- OUTSIDE RECORDS SUMMARY | 2019-02-18 21:27 | XMS REPORT | Summary of Care ---
Author Author [facility] [place] Organization [facility] [place] Address Unknown Phone Unavailable Encounter HQ Danial(FIN) [id number] Date(s): 09/23/16 - 09/23/16 [facility] [place] [address] [place] [address] [phone] Discharge Disposition: Home or Self Care Attending [...]
--- OUTSIDE RECORDS SUMMARY | 2019-02-18 21:27 | XMS REPORT | Summary of Care ---
Author Author [facility] Organization [facility] Address Unknown Phone Unavailable Encounter MYNOR Barrow([facility]) [id number] Date(s): 08/08/17 - 08/08/17 [facility] [address] [place] [address]- [phone] Discharge Disposition: Home or Self Care Attending Physician: Higinio Vela MD Referring Physician: Higinio Vela MD Vital Signs Most recent to 1 oldest [Reference Range]: Height 170.18 cm (08/08/17 11:08 AM) Temperature Oral 98.3 DegF [96.4-99.1 DegF] (08/08/17 11:08 AM) Blood Pressure 155/86 mmHg [90-140/60-90 mmHg] *HI* (08/08/17 11:08 AM) Peripheral Pulse 93 bpm Rate [60-100 bpm] (08/08/17 11:08 AM) Weight 69.205 kg (08/08/17 11:08 AM) Body Mass Index 23.9 m2 (08/08/17 11:08 AM) Problem List Condition Effective Dates Status [...] # 30 tab, 2 Refill(s) Start Date: 08/08/17 Stop Date: 11/06/17 Status: Discontinued Results No data available for [...]
--- OUTSIDE RECORDS SUMMARY | 2019-02-18 21:27 | XMS REPORT | Summary of Care ---
Author Author [facility] Organization [facility] Address Unknown Phone Unavailable Encounter HQ Danial(FIN) [id number] Date(s): 07/28/17 - 07/29/17 [facility] [address] [place] [address]- [phone] Vital Signs No data available for this [...] Tobacco use per day: 10; entered on: 08/08/17 Assessment and Plan No data available for this section
--- OUTSIDE RECORDS SUMMARY | 2019-02-18 21:27 | XMS REPORT | Summary of Care ---
Author Author [facility] Organization [facility] Address Unknown Phone Unavailable Encounter MYNOR Barrow(FIN) [id number] Date(s): 02/02/18 - 02/03/18 [facility] [address] [place] [address]- [phone] Vital Signs No data available for this [...]
--- OUTSIDE RECORDS SUMMARY | 2019-02-18 21:27 | XMS REPORT | Summary of Care ---
Author Author [facility] [place] Organization [facility] [place] Address Unknown Phone Unavailable Encounter HQ Danial(FIN) [id number] Date(s): 07/18/15 - 07/18/15 [facility] [place] [address] [place] [address]- [facility] [phone] Discharge Disposition: Home Attending Physician: Nichole Anguiano MD Vital Signs [...] No data available for this section Immunizations Vaccine Date Refusal Reason pneumococcal 13-valent vaccine 05/24/15 Procedures No data available for this section Social History Social History Type Response Smoking Status Former smoker; Exposure to Tobacco Smoke None; Cigarette Smoking Last 365 Days No; Reg Smoking Cessation Counseling No Assessment and Plan No data available for this section
== END 2019-02-18 22:29 | disposition home or self-care (01) ==
LOC: ER 21:22
DX: S51.012A Laceration without foreign body of left elbow, initial encounter (principal); I10 Essential (primary) hypertension; F32.9 Major depressive disorder, single episode, unspecified; W54.0XXA Bitten by dog, initial encounter; Y92.009 Unspecified place in unspecified non-institutional (private) residence as the place of occurrence of the external cause
CPT/HCPCS: 99282